=== PATIENT | female | born 1940 | race American Indian/Alaskan Native ===

== ENCOUNTER 2019-09-27 06:35 | Emergency (ER) | payer MEDICARE ==
[2019-09-27] MEDS ORDERED: ASPIRIN 325 MG TAB PO ONE (06:50)
[2019-09-27 07:17] LABS: Eosinophils # (Auto) 0.2 K/mm3 (0.0-0.4); Eosinophils % (Auto) 6.2 % (0.0-4.3); Hematocrit 29.2 % (30.3-42.9); Hemoglobin 9.2 gm/dl (10.1-14.3); Lymphocytes # (Auto) 0.9 K/mm3 (1.2-5.4); Lymphocytes % (Auto) 25.3 % (13.4-35.0); Mean Corpuscular HGB Conc 31 % (30-34); Mean Corpuscular Volume 86 fl (79-97); Monocytes # (Auto) 0.4 K/mm3 (0.0-0.8); Monocytes % (Auto) 10.9 % (0.0-7.3); Platelet Count 198 K/mm3 (140-440); Red Cell Distribution Width 18.2 % (13.2-15.2)
[2019-09-27 07:38] LABS: BUN/Creatinine Ratio 13; Blood Urea Nitrogen 10 mg/dL (7-17); Calcium 9.7 mg/dL (8.4-10.2); Hemolysis Index 1
--- NOTE | 2019-09-27 07:44 | XRay Report ---
CHEST 1 VIEW INDICATION: Chest Pain. COMPARISON: None FINDINGS: Support devices: None. Heart: Within normal limits. Lungs/Pleura: The lungs are mildly hyperinflated suggesting underlying emphysema. No evidence for pne umonia, pleural fluid or pneumothorax. Additional findings: None. IMPRESSION: Mild hyperinflation. No acute process noted. Signer Name: Pasquale Dixon Jr, MD Signed: 09/27/2019 7:39 AM Workstation Name: [id number]
--- NOTE | 2019-09-27 10:42 | Emergency Department Report ---
ED Shortness of Breath HPI - General Chief Complaint: Dyspnea/Respdistress Stated Complaint: SOB Time Seen by Provider: 09/27/19 10:39 Source: patient, family Mode of arrival: Wheelchair Limitations: Other - History of Present Illness Initial Comments: This is a 79-year-old female who states that her pulse oximetry was reading in the 80s despite 4 L of home O2 chronically. She states that she is relying on portable tanks instead of a concentrator. She gave herself a nebulizer treatment this morning. She states that she has had occasional cough which is not really as clear as it usually is. She denies hemoptysis. She does not complain of fever or chills. She denies chest pain. Patient is here with family member. She states that she has moved here from [place] within the last month. She is just establishing care with a primary care provider. She has a history of gout and a malignant neoplasm of the bladder. MD Complaint: shortness of breath Improves With: oxygen Worsens With: nothing Known History Of: COPD Context: recent URI Associated Symptoms: denies other symptoms - Related Data Previous Rx's Medication Instructions Recorded Last Taken Type Azithromycin [Zithromax Z-ANU] 250 mg PO DAILY #6 tablet 09/27/19 Unknown Rx Allergies Allergy/AdvReac Type Severity Reaction Status Date / Time cefuroxime Allergy Unknown Verified 09/27/19 06:45 codeine Allergy Unknown Verified 09/27/19 06:45 Sulfa (Sulfonamide Allergy Unknown Verified 09/27/19 06:45 Antibiotics) ED Review of Systems ROS: Stated complaint: SOB Other details as noted in HPI Constitutional: denies: chills, fever Eyes: denies: eye pain, eye discharge, vision change ENT: denies: ear pain, throat pain Respiratory: denies: cough, shortness of breath, wheezing Cardiovascular: denies: chest pain, palpitations Endocrine: no symptoms reported Gastrointestinal: denies: abdominal pain, nausea, diarrhea Genitourinary: denies: urgency, dysuria, discharge Musculoskeletal: other (States chronically cool feet). denies: back pain, joint swelling, arthralgia Skin: denies: rash, lesions, change in color (No acute change) Neurological: denies: headache, weakness, paresthesias Psychiatric: denies: anxiety, depression Hematological/Lymphatic: denies: easy bleeding, easy bruising ED Past Medical Hx - Past Medical History Previous Medical History?: Yes Hx Hypertension: Yes Hx Congestive Heart Failure: Yes Hx Diabetes: Yes Hx Renal Disease: Yes (stage 2) Hx of Cancer: Yes (malignant neoplasm of urinar bladder) Hx Arthritis: Yes (gout) Hx COPD: Yes Additional medical history: neuropathy. afib. Cataract. Pnuemonia aug 2019. high cholesterol. anemia. left kidney mass. STACEY - Surgical History Past Surgical History?: No - Social History Smoking Status: Current Some Day Smoker Substance Use Type: None - Medications Home Medications: Home Medications Medication Instructions Recorded Confirmed Last Taken Type Azithromycin [Zithromax Z-ANU] 250 mg PO DAILY #6 tablet 09/27/19 Unknown Rx ED Physical Exam - General Limitations: Physical Limitation General appearance: alert, in no apparent distress - Head Head exam: Present: atraumatic, normocephalic - Eye Eye exam: Present: normal appearance. Absent: scleral icterus - ENT ENT exam: Present: mucous membranes moist - Neck Neck exam: Present: normal inspection - Respiratory Respiratory exam: Present: decreased breath sounds (Somewhat distant), other (Increased AP diameter). Absent: respiratory distress, wheezes (No overt wheezes), rales, rhonchi - Cardiovascular Cardiovascular Exam: Present: regular rate, normal rhythm. Absent: systolic mu rmur, diastolic murmur, rubs, gallop - GI/Abdominal GI/Abdominal exam: Present: soft, normal bowel sounds. Absent: distended, tenderness, guarding, rebound - Extremities Exam Extremities exam: Present: other (Both feet are slightly cool. There are poor peripheral pulses bilaterally. Color is normal. There is no evidence of an acute ischemic limb.) - Back Exam Back exam: Present: normal inspection - Neurological Exam Neurological exam: Present: alert, oriented X3, CN II-XII intact. Absent: reflexes normal - Psychiatric Psychiatric exam: Present: normal affect, normal mood - Skin Skin exam: Present: warm, dry, intact, normal color. Absent: rash ED Course Vital Signs 09/27/19 09/27/19 09/27/19 06:42 06:44 06:47 Temperature 97.6 F Pulse Rate 57 L Pulse Rate [ 73 Bilateral] Respiratory 18 Rate Respiratory 16 Rate [Bilateral ] Blood Pressure 140/51 Blood Pressure [Left] O2 Sat by Pulse 97 97 Oximetry 09/27/19 13:08 Temperature 97.8 F Pulse Rate 82 Pulse Rate [ Bilateral] Respiratory 18 Rate Respiratory Rate [Bilateral ] Blood Pressure Blood Pressure 130/69 [Left] O2 Sat by Pulse 100 Oximetry - Reevaluation(s) Reevaluation #1: Patient admits that she did not take her metformin today. She is not on insulin. She states that she had benefit from the DuoNeb treatment. Her pulse oximetry is 100% on supplemental oxygen. She states that she has an appointment with her primary care provider on the . She will be placed on an antibiotic and allowed to follow-up with her primary care physician. 09/27/19 13:10 ED Medical Decision Making - Lab Data Result diagrams: 09/27/19 06:57 09/27/19 06:57 Laboratory Results - last 24 hr 09/27/19 09/27/19 09/27/19 06:57 06:57 09:57 WBC 3.7 L RBC 3.40 L Hgb 9.2 L Hct 29.2 L MCV 86 MCH 27 L MCHC 31 RDW 18.2 H Plt Count 198 Lymph % (Auto) 25.3 [place] % (Auto) 10.9 H Eos % (Auto) 6.2 H Baso % (Auto) 1.0 Lymph # 0.9 L [place] # 0.4 Eos # 0.2 Baso # 0.0 Seg Neutrophils % 56.6 Seg Neutrophils # 2.1 Sodium 139 Potassium 4.2 Chloride 97.8 L Carbon Dioxide 26 Anion Gap 19 BUN 10 Creatinine 0.8 Estimated GFR > 60 BUN/Creatinine Ratio 13 Glucose 302 H Calcium 9.7 Troponin T 0.011 < 0.010 NT-Pro-B Natriuret Pep 489.1 - EKG Data -: EKG Interpreted by Me EKG shows normal: axis (Leftward), intervals, QRS complexes (Bundle branch block), ST-T waves Rate: normal - EKG Data Interpretation: no acute changes, other (Multiple PACs wandering atrial pacemaker bifascicular block, right bundle branch block/LAFB, likely LVH) Critical care attestation.: If time is entered above; I have spent that time in minutes in the direct care of this critically ill patient, excluding procedure time. ED Disposition Clinical Impression: Chronic respiratory failure with hypoxia Hyperglycemia due to type 2 diabetes mellitus Qualifiers: Diabetes mellitus intermediate insulin use: without intermediate use Qualified Co de(s): E11.65 - Type 2 diabetes mellitus with hyperglycemia Upper respiratory infection Qualifiers: URI type: unspecified URI Qualified Code(s): J06.9 - Acute upper respiratory infection, unspecified Disposition: DC-01 TO HOME OR SELFCARE Is pt being admited?: No Does the pt Need Aspirin: No Condition: Stable Instructions: Diabetes Mellitus Type 2 in Adults (ED) Additional Instructions: Follow-up with your usual primary care physician. Rx as directed. Return any further problems acute change or symptom. Prescriptions: Azithromycin [Zithromax Z-ANU] 250 mg PO DAILY #6 tablet Referrals: BHAVIN HERNANDEZ MD [Primary Care Provider] - 2-3 Days Time of Disposition: 13:13
[2019-09-27] MEDS ORDERED: IPRATROPIUM/ALBUTEROL SULFATE 3 ML AMPUL.NEB IH ONE (11:10)
[2019-09-27 13:50] VITALS: BP 157/68
== END 2019-09-27 13:50 | disposition home or self-care (01) ==
LOC: ED 06:35
DX: J06.9 Acute upper respiratory infection, unspecified (principal); J96.11 Chronic respiratory failure with hypoxia; I13.0 Hypertensive heart and chronic kidney disease with heart failure and stage 1 through stage 4 chronic kidney disease, or unspecified chronic kidney disease; I50.9 Heart failure, unspecified; E11.22 Type 2 diabetes mellitus with diabetic chronic kidney disease; E11.65 Type 2 diabetes mellitus with hyperglycemia; N18.2 Chronic kidney disease, stage 2 (mild); M10.9 Gout, unspecified; J44.9 Chronic obstructive pulmonary disease, unspecified; I48.91 Unspecified atrial fibrillation; E78.00 Pure hypercholesterolemia, unspecified; D64.9 Anemia, unspecified; F17.200 Nicotine dependence, unspecified, uncomplicated; Z88.2 Allergy status to sulfonamides; Z88.6 Allergy status to analgesic agent; Z79.899 Other long term (current) drug therapy
CPT/HCPCS: 36415; 71045; 80048; 82962; 83880; 84484; 85025; 93005; 93010; 94640; 94644

== ENCOUNTER 2019-10-18 13:54 | Inpatient (IN) | payer MEDICARE ==
[2019-10-18] MEDS ORDERED: ALBUTEROL 2.5 MG/3 ML NEBU IH ONE ×2 (14:11→16:40)
[2019-10-18 14:37] LABS: Bilirubin,Urine NEG (Negative); Blood,Urine NEG (Negative); Color,Urine Yellow (Yellow); Hyaline Casts,Urine 1 /LPF; Mucus,Urine FEW /HPF
--- NOTE | 2019-10-18 14:40 | XRay Report ---
CHEST 1 VIEW 10/18/2019 2:18 PM INDICATION / CLINICAL INFORMATION: Respiratory distress. COMPARISON: Chest x-ray on 09/27/2019. FINDINGS: SUPPORT DEVICES: None. HEART / MEDIASTINUM: Normal heart size. Atherosclerosis in the thoracic aorta. LUNGS / PLEURA: Stable hyperaeration without focal pulmonary abnormality. No pneumothorax. ADDITIONAL FINDINGS: No significant additional findings. IMPRESSION: 1. Stable findings of COPD without adverse change from 09/27/2019. Signer Name: Chris Minor MD Signed: 10/18/2019 2:36 PM Workstation Name: [id number]
[2019-10-18 15:30] LABS: Basophils # (Auto) 0.2 K/mm3 (0.0-0.1); Basophils % (Auto) 2.4 % (0.0-1.8); Eosinophils % (Auto) 0.3 % (0.0-4.3); Hematocrit 32.2 % (30.3-42.9); Hemoglobin 9.9 gm/dl (10.1-14.3); Lymphocytes % (Auto) 13.7 % (13.4-35.0); Mean Corpuscular HGB Conc 31 % (30-34); Mean Corpuscular Volume 84 fl (79-97); Monocytes # (Auto) 0.4 K/mm3 (0.0-0.8); Monocytes % (Auto) 5.3 % (0.0-7.3); Platelet Count 283 K/mm3 (140-440); Red Blood Count 3.82 M/mm3 (3.65-5.03); Red Cell Distribution Width 14.7 % (13.2-15.2)
[2019-10-18 15:40] LABS: INR 1.18 (0.87-1.13)
[2019-10-18 15:41] LABS: Partial Thromboplastin Time 37.4 Sec. (24.2-36.6)
[2019-10-18 15:45] LABS: Alanine Aminotransferase 15 units/L (7-56); BUN/Creatinine Ratio 15; Blood Urea Nitrogen 15 mg/dL (7-17); Calcium 9.6 mg/dL (8.4-10.2); Hemolysis Index 2
[2019-10-18] MEDS ORDERED: levETIRAcetam 1000 MG/NS 0.75% 1,000 MG/100 ML BAG IV ONE (15:56)
--- NOTE | 2019-10-18 16:11 | Emergency Department Report ---
ED Shortness of Breath HPI - General Chief Complaint: Dyspnea/Respdistress Stated Complaint: FELISA Time Seen by Provider: 10/18/19 14:08 Source: patient, EMS Mode of arrival: Stretcher Limitations: No Limitations - History of Present Illness Initial Comments: Patient is a 79-year-old F [place] female with a past medical history of COPD who is oxygen dependent on 2 to 3 L of oxygen at home who presented with shortness of breath. Patient was found hypoxic with a O2 sat in the mid 80s. Patient was placed on BiPAP and given to mill grams of magnesium 10 mg of albuterol and 125 mg of Solu-Medrol prior to arrival. According to the patient's daughter she has not had a fever and does have a dry cough. There is been no nausea vomiting diarrhea. Patient's daughter states that she is in palliative care. - Related Data Previous Rx's Medication Instructions Recorded Last Taken Type Azithromycin [Zithromax Z-ANU] 250 mg PO DAILY #6 tablet 09/27/19 Unknown Rx Allergies Allergy/AdvReac Type Severity Reaction Status Date / Time cefuroxime Allergy Unknown Verified 09/27/19 06:45 codeine Allergy Unknown Verified 09/27/19 06:45 Sulfa (Sulfonamide Allergy Unknown Verified 09/27/19 06:45 Antibiotics) ED Review of Systems ROS: Stated complaint: FELISA Other details as noted in HPI Comment: All other systems reviewed and negative ED Past Medical Hx - Past Medical History Hx Hypertension: Yes Hx Congestive Heart Failure: Yes Hx Diabetes: Yes Hx Renal Disease: Yes (stage 2) Hx Arthritis: Yes (gout) Hx COPD: Yes Additional medical history: neuropathy. afib. Cataract. Pnuemonia aug 2019. high cholesterol. anemia. left kidney mass. STACEY - Social History Smoking Status: Current Every Day Smoker - Medications Home Medications: Home Medications Medication Instructions Recorded Confirmed Last Taken Type Azithromycin [Zithromax Z-ANU] 250 mg PO DAILY #6 tablet 09/27/19 Unknown Rx ED Physical Exam - General Limitations: No Limitations General appearance: alert, in no apparent distress - Head Head exam: Present: atraumatic, normocephalic - Eye Eye exam: Present: normal appearance - ENT ENT exam: Present: mucous membranes moist - Neck Neck exam: Present: normal inspection - Respiratory Respiratory exam: Present: respiratory distress, wheezes. Absent: normal lung sounds bilaterally, rales, rhonchi - Cardiovascular Cardiovascular Exam: Present: regular rate, normal rhythm, normal heart sounds. Absent: systolic murmur, diastolic murmur, rubs, gallop - GI/Abdominal GI/Abdominal exam: Present: soft, normal bowel sounds. Absent: distended, tenderness, guarding - Extremities Exam Extremities exam: Present: normal inspection - Back Exam Back exam: Present: normal inspection - Neurological Exam Neurological exam: Present: alert, oriented X3 - Psychiatric Psychiatric exam: Present: normal affect, normal mood - Skin Skin exam: Present: warm, dry, intact, normal color. Absent: rash ED Course Vital Signs 10/18/19 10/18/19 14:21 14:37 Temperature 99.3 F Pulse Rate 96 H 104 H Respiratory 28 H 16 Rate Blood Pressure 137/69 131/53 O2 Sat by Pulse 99 98 Oximetry ED Medical Decision Making - Lab Data Result diagrams: 10/18/19 14:54 10/18/19 14:54 Lab Results 10/18/19 10/18/19 10/18/19 Range/Units 14:22 14:54 14:54 WBC 7.1 (4.5-11.0) K/mm3 RBC 3.82 (3.65-5.03) M/mm3 Hgb 9.9 L (10.1-14.3) gm/dl Hct 32.2 (30.3-42.9) % MCV 84 (79-97) fl MCH 26 L (28-32) pg MCHC 31 (30-34) % RDW 14.7 (13.2-15.2) % Plt Count 283 (140-440) K/mm3 Lymph % (Auto) 13.7 (13.4-35.0) % [place] % (Auto) 5.3 (0.0-7.3) % Eos % (Auto) 0.3 (0.0-4.3) % Baso % (Auto) 2.4 H (0.0-1.8) % Lymph # 1.0 L (1.2-5.4) K/mm3 [place] # 0.4 (0.0-0.8) K/mm3 Eos # 0.0 (0.0-0.4) K/mm3 Baso # 0.2 H (0.0-0.1) K/mm3 Seg Neutrophils % 78.3 H (40.0-70.0) % Seg Neutrophils # 5.6 (1.8-7.7) K/mm3 PT 15.2 H (12.2-14.9) Sec. INR 1.18 H (0.87-1.13) APTT 37.4 H (24.2-36.6) Sec. D-Dimer 160.25 (0-234) ng/mlDDU Sodium (137-145) mmol/L Potassium (3.6-5.0) mmol/L Chloride (98-107) mmol/L Carbon Dioxide (22-30) mmol/L Anion Gap mmol/L BUN (7-17) mg/dL Creatinine (0.7-1.2) mg/dL Estimated GFR ml/min BUN/Creatinine Ratio % Glucose (65-100) mg/dL Lactic Acid (0.7-2.0) mmol/L Calcium (8.4-10.2) mg/dL Magnesium (1.7-2.3) mg/dL Ferritin (13.0-400.0) ng/mL Total Bilirubin (0.1-1.2) mg/dL AST (5-40) units/L ALT (7-56) units/L Alkaline Phosphatase (35-129) units/L Lactate Dehydrogenase (91-180) units/L Troponin T (0.00-0.029) ng/mL C-Reactive Protein (0.00-1.30) mg/dL NT-Pro-B Natriuret Pep (0-900) pg/mL Total Protein (6.3-8.2) g/dL Urine Color Yellow (Yellow) Urine Turbidity Slightly-cloudy (Clear) Urine pH 5.0 (5.0-7.0) Ur Specific [employer] 1.020 (1.003-1.030) Urine Protein 100 mg/dl (Negative) mg/dL Urine Glucose (UA) 50 (Negative) mg/dL Urine Ketones Neg (Negative) mg/dL Urine Blood Neg (Negative) Urine Nitrite Neg (Negative) Urine Bilirubin Neg (Negative) Urine Urobilinogen 2.0 (<2.0) mg/dL Ur Leukocyte Esterase Tr (Negative) Urine WBC (Auto) 28.0 H (0.0-6.0) /HPF Urine RBC (Auto) 6.0 (0.0-6.0) /HPF U Epithel Cells (Auto) 1.0 (0-13.0) /HPF Hyaline Casts 1 /LPF Urine Mucus Few /HPF 10/18/19 10/18/19 10/18/19 Range/Units 14:54 14:54 14:54 WBC (4.5-11.0) K/mm3 RBC (3.65-5.03) M/mm3 Hgb (10.1-14.3) gm/dl Hct (30.3-42.9) % MCV (79-97) fl MCH (28-32) pg MCHC (30-34) % RDW (13.2-15.2) % Plt Count (140-440) K/mm3 Lymph % (Auto) (13.4-35.0) % [place] % (Auto) (0.0-7.3) % Eos % (Auto) (0.0-4.3) % Baso % (Auto) (0.0-1.8) % Lymph # (1.2-5.4) K/mm3 [place] # (0.0-0.8) K/mm3 Eos # (0.0-0.4) K/mm3 Baso # (0.0-0.1) K/mm3 Seg Neutrophils % (40.0-70.0) % Seg Neutrophils # (1.8-7.7) K/mm3 PT (12.2-14.9) Sec. INR (0.87-1.13) APTT (24.2-36.6) Sec. D-Dimer (0-234) ng/mlDDU Sodium 137 (137-145) mmol/L Potassium 3.8 (3.6-5.0) mmol/L Chloride 93.0 L (98-107) mmol/L Carbon Dioxide 28 (22-30) mmol/L Anion Gap 20 mmol/L BUN 15 (7-17) mg/dL Creatinine 1.0 (0.7-1.2) mg/dL Estimated GFR > 60 ml/min BUN/Creatinine Ratio 15 % Glucose 250 H (65-100) mg/dL Lactic Acid 2.30 H* (0.7-2.0) mmol/L Calcium 9.6 (8.4-10.2) mg/dL Magnesium 2.90 H (1.7-2.3) mg/dL Ferritin (13.0-400.0) ng/mL Total Bilirubin 0.30 (0.1-1.2) mg/dL AST 31 (5-40) units/L ALT 15 (7-56) units/L Alkaline Phosphatase 81 (35-129) units/L Lactate Dehydrogenase (91-180) units/L Troponin T 0.032 H (0.00-0.029) ng/mL C-Reactive Protein (0.00-1.30) mg/dL NT-Pro-B Natriuret Pep 360.3 (0-900) pg/mL Total Protein 6.8 (6.3-8.2) g/dL Urine Color (Yellow) Urine Turbidity (Clear) Urine pH (5.0-7.0) Ur Specific [employer] (1.003-1.030) Urine Protein (Negative) mg/dL Urine Glucose (UA) (Negative) mg/dL Urine Ketones (Negative) mg/dL Urine Blood (Negative) Urine Nitrite (Negative) Urine Bilirubin (Negative) Urine Urobilinogen (<2.0) mg/dL Ur Leukocyte Esterase (Negative) Urine WBC (Auto) (0.0-6.0) /HPF Urine RBC (Auto) (0.0-6.0) /HPF U Epithel Cells (Auto) (0-13.0) /HPF Hyaline Casts /LPF Urine Mucus /HPF 10/18/19 10/18/19 Range/Units 14:54 14:54 WBC (4.5-11.0) K/mm3 RBC (3.65-5.03) M/mm3 Hgb (10.1-14.3) gm/dl Hct (30.3-42.9) % MCV (79-97) fl MCH (28-32) pg MCHC (30-34) % RDW (13.2-15.2) % Plt Count (140-440) K/mm3 Lymph % (Auto) (13.4-35.0) % [place] % (Auto) (0.0-7.3) % Eos % (Auto) (0.0-4.3) % Baso % (Auto) (0.0-1.8) % Lymph # (1.2-5.4) K/mm3 [place] # (0.0-0.8) K/mm3 Eos # (0.0-0.4) K/mm3 Baso # (0.0-0.1) K/mm3 Seg Neutrophils % (40.0-70.0) % Seg Neutrophils # (1.8-7.7) K/mm3 PT (12.2-14.9) Sec. INR (0.87-1.13) APTT (24.2-36.6) Sec. D-Dimer (0-234) ng/mlDDU Sodium (137-145) mmol/L Potassium (3.6-5.0) mmol/L Chloride (98-107) mmol/L Carbon Dioxide (22-30) mmol/L Anion Gap mmol/L BUN (7-17) mg/dL Creatinine (0.7-1.2) mg/dL Estimated GFR ml/min BUN/Creatinine Ratio % Glucose (65-100) mg/dL Lactic Acid (0.7-2.0) mmol/L Calcium (8.4-10.2) mg/dL Magnesium (1.7-2.3) mg/dL Ferritin 59.8 (13.0-400.0) ng/mL Total Bilirubin (0.1-1.2) mg/dL AST (5-40) units/L ALT (7-56) units/L Alkaline Phosphatase (35-129) units/L Lactate Dehydrogenase < 10 L (91-180) units/L Troponin T (0.00-0.029) ng/mL C-Reactive Protein 0.00 (0.00-1.30) mg/dL NT-Pro-B Natriuret Pep (0-900) pg/mL Total Protein (6.3-8.2) g/dL Urine Color (Yellow) Urine Turbidity (Clear) Urine pH (5.0-7.0) Ur Specific [employer] (1.003-1.030) Urine Protein (Negative) mg/dL Urine Glucose (UA) (Negative) mg/dL Urine Ketones (Negative) mg/dL Urine Blood (Negative) Urine Nitrite (Negative) Urine Bilirubin (Negative) Urine Urobilinogen (<2.0) mg/dL Ur Leukocyte Esterase (Negative) Urine WBC (Auto) (0.0-6.0) /HPF Urine RBC (Auto) (0.0-6.0) /HPF U Epithel Cells (Auto) (0-13.0) /HPF Hyaline Casts /LPF Urine Mucus /HPF - Radiology Data [facility] [address] [place] [address] XRay Report Signed Patient: AMY SEBASTIAN MR#: [id number] : 1940 Acct:[id number] Age/Sex: 79 / F ADM Date: 10/18/19 Loc: ED Attending Dr: Ordering Physician: ANJALI SAMSON MD Date of Service: 10/18/19 Procedure(s): XR chest 1V ap Accession Number(s): [id number] cc: ANJALI SAMSON MD Fluoro Time In Minutes: CHEST 1 VIEW 10/18/2019 2:18 PM INDICATION / CLINICAL INFORMATION: Respiratory distress. COMPARISON: Chest x-ray on 09/27/2019. FINDINGS: SUPPORT DEVICES: None. HEART / MEDIASTINUM: Normal heart size. Atherosclerosis in the thoracic aorta. LUNGS / PLEURA: Stable hyperaeration without focal pulmonary abnormality. No pneumothorax. ADDITIONAL FINDINGS: No significant additional findings. IMPRESSION: 1. Stable findings of COPD without adverse change from 09/27/2019. Signer Name: Chris Minor MD Signed: 10/18/2019 2:36 PM Workstation Name: [id number] Transcribed By: KATIE Dictated By: Chris Minor MD Electronically Authenticated By: Chris Minor MD Signed Date/Time: 10/18/19 1436 - Medical Decision Making Patient is a 79-year-old F [place] female with past medical history of advanced COPD who is presenting with a COPD exacerbation with hypoxia. Patient is on BiPAP. Filter was placed on the BiPAP so has not aerosolized sputum. Given the recent coronavirus pandemic I did don a gown with eye shield and in 95 mask during my interaction with this patient. Patient was afebrile her white count is within normal limits. Patient was given additional 10 mg of albuterol and her wheezing has improved. Patient still has a prolonged expiratory phase but appears to be more comfortable at the time of admission. Patient found to have a urinary tract infection and was given Levaquin. Patient be admitted for observation. Critical Care Time: Yes (30) Critical care attestation.: If time is entered above; I have spent that time in minutes in the direct care of this critically ill patient, excluding procedure time. ED Disposition Clinical Impression: COPD with exacerbation, Acute respiratory distress, Urinary tract infection Disposition: OP ADMIT IP TO THIS HOSP Is pt being admited?: Yes Does the pt Need Aspirin: No Condition: Stable Time of Disposition: 16:11
[2019-10-18 16:25] LABS: Albumin 3.4 g/dL (3.9-5); Chol/HDL Ratio 1.83 %; HDL Cholesterol 91 mg/dL (40-59); LDL Cholesterol,Direct 74 mg/dL (50-130)
--- NOTE | 2019-10-18 16:39 | History and Physical Report ---
History of Present Illness Chief complaint: I have been having problems breathing for the past few days History of present illness: 79 YO Female with COPD, Chronic Respiratory Failure on 2L Home Oxygen via nasal canula, CHF, CKD, OA, DM, Gout, Nicotine Dependence presents to ED for evaluation. Patient states that she has experienced shortness of breath over the past 3 days with persistently worsening symptoms over the same timeframe. Patient acknowledges dry cough with increased sputum production, as well as per sistent symptoms with increased nebulizer use and increased supplemental oxygen use. EMS notified and upon arrival the patient was found to be in distress and subsequently transported to [facility] for further evaluation and care. Patient seen and evaluated in the emergency department. Lab and imaging studies reviewed. Patient found to have symptoms consistent with COPD exacerbation complicated by acute hypoxemic respiratory failure with a pulse oximetry of 81% on 2 L nasal cannula. Patient also found to have urinary tract infection, acidosis, as well as CHF. Patient admitted to [facility] unit due to increased risk of pulmonary decompensation. Patient symptoms did not improve with supplemental oxygen as the patient experienced increased work of breathing, tripoding, and was unable to speak in complete sentences due to shortness of breath. Patient was subsequently placed on noninvasive positive pressure pain evaluation in the emergency department and initiated on IV steroid therapy. Advanced care planning conducted in the emergency department. No prior admission for review. No medication listed at time of admission for reconciliation. Past History Past Medical History: arthritis, COPD, diabetes, heart failure, other (See HPI) Past Surgical History: No surgical history, Other (Reviewed) Social history: single, smoking. denies: alcohol abuse, prescription drug abuse Family history: CAD, diabetes, hypertension Medications and Allergies Allergies Allergy/AdvReac Type Severity Reaction Status Date / Time cefuroxime Allergy Unknown Verified 09/27/19 06:45 codeine Allergy Unknown Verified 09/27/19 06:45 Sulfa (Sulfonamide Allergy Unknown Verified 09/27/19 06:45 Antibiotics) Home Medications Medication Instructions Recorded Confirmed Last Taken Type Azithromycin [Zithromax Z-ANU] 250 mg PO DAILY #6 tablet 09/27/19 Unknown Rx Review of Systems Constitutional: no weight loss, no weight gain, no fever, no chills, no fatigue, no weakness, no malaise Ears, nose, mouth and throat: no ear pain, no ear discharge, no tinnitis, no decreased hearing, no nose pain, no nasal congestion, no nasal discharge Cardiovascular: no chest pain, no orthopnea, no palpitations, no rapid/irregular heart beat Respiratory: cough, cough with sputum, shortness of breath, no congestion, no wheezing, no pleurisy Gastrointestinal: no nausea, no vomiting, no diarrhea, no constipation Genitourinary Female: no pelvic pain, no flank pain, no menorrhagia, no dysuria Rectal: no pain, no incontinence, no bleeding Musculoskeletal: no neck stiffness, no neck pain, no shooting arm pain, no arm numbness/tingling, no low back pain Integumentary: no rash, no pruritis, no redness, no sores, no wounds Neurological: no transient paralysis, no paralysis, no weakness, no parathesias, no numbness Psychiatric: no anxiety, no memory loss, no change in sleep habits, no sleep disturbances, no insomnia, no hypersomnia Endocrine: no cold intolerance, no heat intolerance, no polyphagia, no excessive thirst, no polydipsia, no polyuria Hematologic/Lymphatic: no easy bruising, no easy bleeding, no lymphadenopathy Allergic/Immunologic: no urticaria, no allergic rhinitis, no persistent infections Exam - Constitutional Vitals: Temp Pulse Resp BP Pulse Ox 99.3 F 91 H 18 107/54 100 10/18/19 14:37 10/18/19 16:00 10/18/19 16:11 10/18/19 16:00 10/18/19 16:11 General appearance: Present: mild distress, cachectic - EENT Eyes: Present: PERRL ENT: hearing intact, clear oral mucosa - Neck Neck: Present: supple, normal ROM - Respiratory Respiratory effort: normal Respiratory: bilateral: diminished, rhonchi - Cardiovascular Heart Sounds: Present: S1 & S2. Absent: rub, click - Extremities Extremities: pulses symmetrical, No edema Peripheral Pulses: within normal limits - Abdominal General gastrointestinal: Present: soft, non-tender, non-distended, normal bowel sounds Female genitourinary: Present: normal - Integumentary Integumentary: Present: clear, warm, dry - Musculoskeletal Musculoskeletal: generalized weakness - Psychiatric Psychiatric: appropriate mood/affect, intact judgment & insight - Neurologic Neurologic: CNII-XII intact, moves all extremities Results - Labs CBC & Chem 7: 10/18/19 14:54 10/18/19 14:54 Labs: Abnormal lab results 10/18/19 10/18/19 10/18/19 Range/Units 14:22 14:54 14:54 Hgb 9.9 L (10.1-14.3) gm/dl MCH 26 L (28-32) pg Baso % (Auto) 2.4 H (0.0-1.8) % Lymph # 1.0 L (1.2-5.4) K/mm3 Baso # 0.2 H (0.0-0.1) K/mm3 Seg Neutrophils % 78.3 H (40.0-70.0) % PT 15.2 H (12.2-14.9) Sec. INR 1.18 H (0.87-1.13) APTT 37.4 H (24.2-36.6) Sec. Chloride (98-107) mmol/L Glucose (65-100) mg/dL Lactic Acid (0.7-2.0) mmol/L Magnesium (1.7-2.3) mg/dL Lactate Dehydrogenase (91-180) units/L Troponin T (0.00-0.029) ng/mL Albumin (3.9-5) g/dL HDL Cholesterol (40-59) mg/dL Urine WBC (Auto) 28.0 H (0.0-6.0) /HPF 10/18/19 10/18/19 10/18/19 Range/Units 14:54 14:54 14:54 Hgb (10.1-14.3) gm/dl MCH (28-32) pg Baso % (Auto) (0.0-1.8) % Lymph # (1.2-5.4) K/mm3 Baso # (0.0-0.1) K/mm3 Seg Neutrophils % (40.0-70.0) % PT (12.2-14.9) Sec. INR (0.87-1.13) APTT (24.2-36.6) Sec. Chloride 93.0 L (98-107) mmol/L Glucose 250 H (65-100) mg/dL Lactic Acid 2.30 H* (0.7-2.0) mmol/L Magnesium 2.90 H (1.7-2.3) mg/dL Lactate Dehydrogenase < 10 L (91-180) units/L Troponin T 0.032 H (0.00-0.029) ng/mL Albumin 3.4 L (3.9-5) g/dL HDL Cholesterol 91 H (40-59) mg/dL Urine WBC (Auto) (0.0-6.0) /HPF Assessment and Plan - Patient Problems (1) Acute respiratory failure Current Visit: Yes Status: Acute Qualifiers: Respiratory failure complication: hypoxia Qualified Code(s): J96.01 - Acute respiratory failure with hypoxia Plan to address problem: Supplemental oxygen, nebulizer therapy, noninvasive positive pressure ventilation, chest x-ray, treat COPD exacerbation. Continue home oxygen and titrate as clinically indicated. (2) CHF (congestive heart failure) Current Visit: Yes Status: Acute Qualifiers: Heart failure type: diastolic Heart failure chronicity: chronic Qualified Code(s): I50.32 - Chronic diastolic (congestive) heart failure Plan to address problem: Strict I/O, monitor urine output every shift, BMP, serial cardiac enzymes, supportive care. (3) COPD with exacerbation Current Visit: Yes Status: Acute Plan to address problem: Supplemental oxygen, nebulizer therapy, pulse oximetry, IV steroid therapy, noninvasive positive pressure ventilation, chest x-ray. (4) Urinary tract infection Current Visit: Yes Status: Acute Qualifiers: Encounter type: initial encounter Plan to address problem: CBC, BMP, urinalysis, IV antibiotic therapy, (5) DVT prophylaxis Current Visit: Yes Status: Acute Plan to address problem: SCD to bilateral lower extremities while in bed, patient is ambulatory. (6) Advance care planning Current Visit: Yes Status: Acute Plan to address problem: Patient is full code, disease education conducted, patient and daughter acknowledged understanding and agreement with care plan, +30 minutes.
[2019-10-18] MEDS ORDERED: ACETAMINOPHEN 325 MG TAB PO PRN (16:41)
[2019-10-18] MEDS ORDERED: ONDANSETRON 4 MG/2 ML INJ IV PRN (16:41)
[2019-10-18] MEDS ORDERED: methylPREDNISolone Sod Succinate 40 MG/1 ML INJ IV ONE (17:00)
[2019-10-18] MEDS: ENOXAPARIN 100 MG/1 ML INJ SUB-Q SCH (21:49)
[2019-10-18] MEDS ORDERED: ENOXAPARIN 100 MG/1 ML INJ SUB-Q SCH (22:00)
[2019-10-19 05:41] LABS: Calcium 9.2 mg/dL (8.4-10.2)
[2019-10-19] MEDS: methylPREDNISolone Sod Succinate 40 MG/1 ML INJ IV SCH ×2 (06:16→17:42)
[2019-10-19] MEDS: ENOXAPARIN 100 MG/1 ML INJ SUB-Q SCH (10:12)
[2019-10-19] MEDS ORDERED: DEXTROSE 50% IN WATER (25GM) 50 ML SYRINGE IV PRN (11:10)
[2019-10-19] MEDS: INSULIN LISPRO 100 UNIT/ML SUB-Q SCH ×3 (12:09→22:13)
--- NOTE | 2019-10-19 17:13 | Progress Note ---
Assessment and Plan - Patient Problems (1) CHF (congestive heart failure) Current Visit: Yes Status: Acute Qualifiers: Heart failure type: diastolic Heart failure chronicity: chronic Qualified Code(s): I50.32 - Chronic diastolic (congestive) heart failure Plan to address problem: Strict I/O, monitor urine output every shift, BMP, serial cardiac enzymes, supportive care. Echocardiogram shows EF of 15%. (2) NSTEMI (non-ST elevation myocardial infarction) Current Visit: Yes Status: Acute Plan to address problem: Type II NSTEMI: Continue therapeutic anticoagulation, supportive care. (3) Acute respiratory failure Current Visit: Yes Status: Acute Qualifiers: Respiratory failure complication: hypoxia Qualified Code(s): J96.01 - Acute respiratory failure with hypoxia Plan to address problem: Supplemental oxygen, nebulizer therapy, noninvasive positive pressure ventilation, chest x-ray, treat COPD exacerbation. Continue home oxygen and titrate as clinically indicated. (4) COPD with exacerbation Current Visit: Yes Status: Acute Plan to address problem: Supplemental oxygen, nebulizer therapy, pulse oximetry, IV steroid therapy, noninvasive positive pressure ventilation weaned off overnight, continue submental oxygen as clinically indicated, repeat chest x-ray. (5) Urinary tract infection Current Visit: Yes Status: Acute Qualifiers: Encounter type: initial encounter Plan to address problem: CBC, BMP, urinalysis, IV antibiotic therapy, (6) DVT prophylaxis Current Visit: Yes Status: Acute Plan to address problem: SCD to bilateral lower extremities while in bed, patient is ambulatory. (7) Advance care planning Current Visit: Yes Status: Acute Plan to address problem: Patient is full code, disease education conducted, patient and daughter acknowledged understanding and agreement with care plan, +30 minutes. History Interval history: 79-year-old female hospital day 2 with CHF decompensation complicated by acute hypoxemic respiratory failure, urinary tract infection, type II NSTEMI on therapeutic anticoagulation. Patient denies fever, chills, chest pain, palpitation, hemoptysis. Patient states that her symptoms have improved somewhat overnight. Patient continues to acknowledge weakness, and mild shortness of breath. Patient acknowledges weakness. Patient weaned off noninvasive positive pressure ventilation overnight but we will continue supplemental oxygen. No reported nursing events overnight. Hospitalist Physical - Constitutional Vitals: Temp Pulse Resp BP Pulse Ox 97.9 F 85 16 155/65 97 10/19/19 16:04 10/19/19 16:04 10/19/19 16:04 10/19/19 16:04 10/19/19 16:04 General appearance: Present: mild distress, cachectic - EENT Eyes: Present: PERRL ENT: hearing intact - Neck Neck: Present: supple - Respiratory Respiratory: bilateral: diminished, rhonchi - Cardiovascular Rhythm: regular Heart Sounds: Present: S1 & S2 - Abdominal General gastrointestinal: soft, non-tender, non-distended - Integumentary Integumentary: Present: clear, warm, dry - Psychiatric Psychiatric: appropriate mood/affect, cooperative - Neurologic Neurologic: moves all extremities Results - Labs CBC & Chem 7: 10/18/19 14:54 10/19/19 04:37 Labs: Laboratory Last Values WBC 7.1 K/mm3 (4.5-11.0) 10/18/19 14:54 RBC 3.82 M/mm3 (3.65-5.03) 10/18/19 14:54 Hgb 9.9 gm/dl (10.1-14.3) L 10/18/19 14:54 Hct 32.2 % (30.3-42.9) 10/18/19 14:54 MCV 84 fl (79-97) 10/18/19 14:54 MCH 26 pg (28-32) L 10/18/19 14:54 MCHC 31 % (30-34) 10/18/19 14:54 RDW 14.7 % (13.2-15.2) 10/18/19 14:54 Plt Count 283 K/mm3 (140-440) 10/18/19 14:54 Lymph % (Auto) 13.7 % (13.4-35.0) 10/18/19 14:54 [place] % (Auto) 5.3 % (0.0-7.3) 10/18/19 14:54 Eos % (Auto) 0.3 % (0.0-4.3) 10/18/19 14:54 Baso % (Auto) 2.4 % (0.0-1.8) H 10/18/19 14:54 Lymph # 1.0 K/mm3 (1.2-5.4) L 10/18/19 14:54 [place]imer # 0.4 K/mm3 (0.0-0.8) 10/18/19 14:54 Eos # 0.0 K/mm3 (0.0-0.4) 10/18/19 14:54 Baso # 0.2 K/mm3 (0.0-0.1) H 10/18/19 14:54 Seg Neutrophils % 78.3 % (40.0-70.0) H 10/18/19 14:54 Seg Neutrophils # 5.6 K/mm3 (1.8-7.7) 10/18/19 14:54 PT 15.2 Sec. (12.2-14.9) H 10/18/19 14:54 INR 1.18 (0.87-1.13) H 10/18/19 14:54 APTT 37.4 Sec. (24.2-36.6) H 10/18/19 14:54 D-Dimer 160.25 ng/mlDDU (0-234) 10/18/19 14:54 Sodium 136 mmol/L (137-145) L 10/19/19 04:37 Potassium 5.1 mmol/L (3.6-5.0) H D 10/19/19 04:37 Chloride 92.0 mmol/L (98-107) L 10/19/19 04:37 Carbon Dioxide 30 mmol/L (22-30) 10/19/19 04:37 Anion Gap 19 mmol/L 10/19/19 04:37 BUN 33 mg/dL (7-17) H 10/19/19 04:37 Creatinine 1.2 mg/dL (0.7-1.2) 10/19/19 04:37 Estimated GFR 53 ml/min 10/19/19 04:37 BUN/Creatinine Ratio 28 % 10/19/19 04:37 Glucose 384 mg/dL (65-100) H 10/19/19 04:37 POC Glucose 242 (70-105) H 10/19/19 16:32 Lactic Acid 1.40 mmol/L (0.7-2.0) 10/18/19 16:52 Calcium 9.2 mg/dL (8.4-10.2) 10/19/19 04:37 Magnesium 2.90 mg/dL (1.7-2.3) H 10/18/19 14:54 Ferritin 59.8 ng/mL (13.0-400.0) 10/18/19 14:54 Total Bilirubin 0.30 mg/dL (0.1-1.2) 10/18/19 14:54 AST 31 units/L (5-40) 10/18/19 14:54 ALT 15 units/L (7-56) 10/18/19 14:54 Alkaline Phosphatase 81 units/L (35-129) 10/18/19 14:54 Lactate Dehydrogenase < 10 units/L (91-180) L 10/18/19 14:54 Troponin T 0.118 ng/mL (0.00-0.029) H* D 10/18/19 22:51 C-Reactive Protein 0.00 mg/dL (0.00-1.30) 10/18/19 14:54 NT-Pro-B Natriuret Pep 360.3 pg/mL (0-900) 10/18/19 14:54 Total Protein 6.8 g/dL (6.3-8.2) 10/18/19 14:54 Albumin 3.4 g/dL (3.9-5) L 10/18/19 14:54 Albumin/Globulin Ratio 1.0 % 10/18/19 14:54 Triglycerides 112 mg/dL (2-149) 10/18/19 14:54 Cholesterol 167 mg/dL (50-199) 10/18/19 14:54 LDL Cholesterol Direct 74 mg/dL (50-130) 10/18/19 14:54 HDL Cholesterol 91 mg/dL (40-59) H 10/18/19 14:54 Cholesterol/HDL Ratio 1.83 % 10/18/19 14:54 Procalcitonin 0.08 ng/mL (<0.15) 10/18/19 14:54 Urine Color Yellow (Yellow) 10/18/19 14:22 Urine Turbidity Slightly-cloudy (Clear) 10/18/19 14:22 Urine pH 5.0 (5.0-7.0) 10/18/19 14:22 Ur Specific [place] 1.020 (1.003-1.030) 10/18/19 14:22 Urine Protein 100 mg/dl mg/dL (Negative) 10/18/19 14:22 Urine Glucose (UA) 50 mg/dL (Negative) 10/18/19 14:22 Urine Ketones Neg mg/dL (Negative) 10/18/19 14:22 Urine Blood Neg (Negative) 10/18/19 14:22 Urine Nitrite Neg (Negative) 10/18/19 14:22 Urine Bilirubin Neg (Negative) 10/18/19 14:22 Urine Urobilinogen 2.0 mg/dL (<2.0) 10/18/19 14:22 Ur Leukocyte Esterase Tr (Negative) 10/18/19 14:22 Urine WBC (Auto) 28.0 /HPF (0.0-6.0) H 10/18/19 14:22 Urine RBC (Auto) 6.0 /HPF (0.0-6.0) 10/18/19 14:22 U Epithel Cells (Auto) 1.0 /HPF (0-13.0) 10/18/19 14:22 Hyaline Casts 1 /LPF 10/18/19 14:22 Urine Mucus Few /HPF 10/18/19 14:22 Microbiology: Microbiology 10/18/19 Unknown Peripheral/Venous Blood Culture - Preliminary NO GROWTH AFTER 24 HOURS 10/18/19 14:22 Urine,Clean Catch Urine Culture - Preliminary 10/18/19 Unknown Peripheral/Venous Blood Culture - Preliminary - Diagnostic Impressions Diagnostic Impressions: Echocardiogram 10/18/19 18:15 Transthoracic Echocardiogram Indication: SOB BP: 127/67 HR: 82 Conclusions *The left ventricular size is moderate to severely dilated. *Mild to moderate concentric left ventricular hypertrophy is observed. *Global left ventricular systolic function is severely decreased. *The estimated ejection fraction is 15-20%. *There is global akinesis with mild sparing of the basal segments of the LV. *There is mild mitral regurgitation. *There is moderate tricuspid regurgitation. *There is evidence of mild-moderate pulmonary hypertension. *The right ventricular systolic pressure is calculated at 40 mmHg. *A patent foramen ovale is not demonstrated by agitated saline contrast. Findings Left Ventricle: The left ventricular size is moderate to severely dilated. Mild to moderate concentric left ventricular hypertrophy is observed. Global left ventricular systolic function is severely decreased. The estimated ejection fraction is 15-20%. Left Atrium: The left atrium is mildly dilated. Right Ventricle: The right ventricle is slightly dilated. Right Atrium: The right atrium is mildly dilated. A patent foramen ovale is not demonstrated by agitated saline contrast. Aortic Valve: The aortic valve is trileaflet. The aortic valve leaflets are moderately thickened. There is no evidence of aortic regurgitation. There is no evidence of aortic stenosis. Mitral Valve: The mitral valve leaflets are mildly thickened. There is mild mitral regurgitation. There is no evidence of mitral stenosis. Tricuspid Valve: There is moderate tricuspid regurgitation. The right ventricular systolic pressure is calculated at 40 mmHg. There is evidence of mild pulmonary hypertension. Pulmonic Valve: There is mild to moderate pulmonic regurgitation. There is no pulmonic stenosis. Pericardium: There is no pericardial effusion. Aorta: There is no dilatation of the ascending aorta. There is no dilatation of the aortic root. Venous: The inferior vena cava appears normal in size. Contrast: Intravenous agitated saline contrast was used to assess intracardiac shunting. Measurements Chambers 2D Name Value Normal Range IVSd (2D) 0.96 cm (0.6 - 1.1) LVPWd (2D) 0.9 cm (0.6 - 1.1) LVIDd (2D) 4.4 cm (3.7 - 5.6) LVIDs (2D) 3.31 cm (2 - 3.8) LV FS (2D) 24.93 % - EF Teichholz (2D) 49.56 % - Ao root diameter (2D) 2.6 cm (2 - 3.7) Volumes/Mass Name Value Normal Range LA ESV SP 4CH (A/L) 25.64 ml - LA ESV SP 2CH (A/L) 49.56 ml - LA ESV BP (A/L) 36.99 ml - LA ESV BP (A/L) index 24.17 ml/m2 - LA ESV SP 4CH (MOD) 23.97 ml - LA ESV SP 2CH (MOD) 48.32 ml - LA ESV BP (MOD) 35.21 ml - LA ESV BP (MOD) index 23.01 ml/m2 - Diastolic/Systolic Function Name Value Normal Range MV E-wave Vmax 0.63 m/sec - MV deceleration time 159.36 msec - MV A-wave Vmax 1.05 m/sec - MV E:A ratio 0.6 ratio - Aortic Valve Name Value Normal Range AV Vmax 1.34 m/sec - AV VTI 27.98 cm - AV peak gradient 7.18 mmHg - AV mean gradient 4.04 mmHg - LVOT diameter 2.06 cm - LVOT Vmax 1.04 m/sec - LVOT VTI 21.43 cm - LVOT peak gradient 4.33 mmHg - LVOT mean gradient 2.51 mmHg - SV LVOT 71.3 ml - ANGY (continuity Vmax) 2.58 cm2 - ANGY (continuity VTI) 2.55 cm2 - Mitral Valve Name Value Normal Range MR Vmax 4.21 m/sec - Tricuspid Valve Name Value Normal Range TR Vmax 3.07 m/sec - TR peak gradient 37 mmHg - RAP 3 mmHg - RVSP 40 mmHg - Pulmonic Valve/Qp:Qs Name Value Normal Range PV Vmax 0.75 m/sec - PV peak gradient 2.22 mmHg - CT end-diastolic Vmax 1.15 m/sec - PV acceleration time 91.34 msec - Landeros/IV: Voiding Method Bedpan IV Catheter Type [Right INT / Saline Lock Antecubital] Active Medications - Current Medications Current Medications: Generic Name Dose Route Start Last Admin Trade Name Freq PRN Reason Stop Dose Admin Acetaminophen 650 mg 10/18/19 16:41 Tylenol PO Q4H PRN Pain MILD(1-3)/Fever >100.5/HERNANDEZ Dextrose 50 ml 10/19/19 11:10 D50w (25gm) Syringe IV Q30MIN PRN Hypoglycemia Protocol Enoxaparin Sodium 50 mg 10/19/19 22:00 Enoxaparin SUB-Q Q12HR MIREILLE Levofloxacin/Dextrose 500 mg in 100 mls @ 100 mls/hr 10/18/19 17:00 10/18/19 17:34 Levaquin 500mg/100ml IV 100 mls/hr Q24H MIREILLE Administration Protocol Insulin Human Lispro 0 unit 10/19/19 11:30 10/19/19 12:09 Humalog SUB-Q 6 unit ACHS MIREILLE Administration Protocol Methylprednisolone Sodium Succinate 40 mg 10/19/19 06:00 10/19/19 06:16 Solu-Medrol IV 40 mg Q12H MIREILLE Administration Ondansetron HCl 4 mg 10/18/19 16:41 Zofran IV Q8H PRN Nausea And Vomiting Sodium Chloride 10 ml 10/18/19 22:00 10/19/19 10:13 Sodium Chloride Flush Syringe 10 Ml IV 10 ml BID MIREILLE Administration Sodium Chloride 10 ml 10/18/19 16:41 Sodium Chloride Flush Syringe 10 Ml IV PRN PRN LINE FLUSH
[2019-10-19] MEDS: ENOXAPARIN 60 MG/0.6 ML INJ SUB-Q SCH (22:13)
[2019-10-20] MEDS: methylPREDNISolone Sod Succinate 40 MG/1 ML INJ IV SCH ×2 (05:19→18:02)
[2019-10-20] MEDS: INSULIN LISPRO 100 UNIT/ML SUB-Q SCH ×4 (08:05→23:00)
[2019-10-20] MEDS: ENOXAPARIN 60 MG/0.6 ML INJ SUB-Q SCH ×2 (10:32→23:00)
[2019-10-20] MEDS: ALBUTEROL 2.5 MG/3 ML NEBU IH PRN (23:39)
[2019-10-21] MEDS: methylPREDNISolone Sod Succinate 40 MG/1 ML INJ IV SCH ×2 (05:35→17:01)
--- NOTE | 2019-10-21 10:08 | Progress Note ---
Assessment and Plan (1) Acute respiratory failure Current Visit: Yes Status: Acute Qualifiers: Respiratory failure complication: hypoxia Qualified Code(s): J96.01 - Acute respiratory failure with hypoxia Plan to address problem: Supplemental oxygen, nebulizer therapy, noninvasive positive pressure ventilation, chest x-ray, treat COPD exacerbation. Continue home oxygen and titrate as clinically indicated. Day 2 there is some improvement but still short of breath (2) CHF (congestive heart failure) Current Visit: Yes Status: Acute Qualifiers: Heart failure type: diastolic Heart failure chronicity: chronic Qualified Code(s): I50.32 - Chronic diastolic (congestive) heart failure Plan to address problem: Strict I/O, monitor urine output every shift, BMP, serial cardiac enzymes, supportive care. Will check echocardiogram for ejection fraction (3) COPD with exacerbation Current Visit: Yes Status: Acute Plan to address problem: Supplemental oxygen, nebulizer therapy, pulse oximetry, IV steroid therapy, noninvasive positive pressure ventilation, chest x-ray. Due to some improvement (4) Urinary tract infection Current Visit: Yes Status: Acute Qualifiers: Encounter type: initial encounter Plan to address problem: CBC, BMP, urinalysis, IV antibiotic therapy, Continue antibiotics (5) DVT prophylaxis Current Visit: Yes Status: Acute Plan to address problem: SCD to bilateral lower extremities while in bed, patient is ambulatory. (6) Advance care planning Current Visit: Yes Status: Acute Plan to address problem: Patient is full code, disease education conducted, patient and daughter acknowledged understanding and agreement with care plan, +30 minutes. Subjective Date of service: 10/20/19 Principal diagnosis: CHF Exacerbation Interval history: CHF exacerbation 79 YO Female with COPD, Chronic Respiratory Failure on 2L Home Oxygen via nasal canula, CHF, CKD, OA, DM, Gout, Nicotine Dependence presents to ED for evalu ation. Patient states that she has experienced shortness of breath over the past 3 days with persistently worsening symptoms over the same timeframe. Patient acknowledges dry cough with increased sputum production, as well as persistent symptoms with increased nebulizer use and increased supplemental oxygen use. EMS notified and upon arrival the patient was found to be in distress and subsequently transported to [facility] for further evaluation and care. Patient seen and evaluated in the emergency department. Lab and imaging studies reviewed. Patient found to have symptoms consistent with COPD exacerbation complicated by acute hypoxemic respiratory failure with a pulse oximetry of 81% on 2 L nasal cannula. Patient also found to have urinary tract infection, acidosis, as well as CHF. Patient admitted to [facility] unit due to increased risk of pulmonary decompensation. Patient symptoms did not improve with supplemental oxygen as the patient experienced increased work of breathing, tripoding, and was unable to speak in complete sentences due to shortness of breath. Patient was subsequently placed on noninvasive positive pressure pain evaluation in the emergency department and initiated on IV steroid therapy. Advanced care planning conducted in the emergency department. No prior admission for review. No medication listed at time of admission for reconciliation. Interval improvement present Objective - Constitutional Vitals: Vital Signs - 12hr 10/20/19 10/20/19 10/20/19 23:07 23:30 23:40 Temperature 98.2 F Pulse Rate 97 H Pulse Rate [ 105 H Anterior Bilateral Throughout] Respiratory 18 24 Rate Respiratory 20 Rate [Anterior Bilateral Throughout] Respiratory Rate [denies] Blood Pressure 149/72 O2 Sat by Pulse 92 Oximetry 10/20/19 10/21/19 10/21/19 23:52 00:13 03:00 Temperature Pulse Rate 108 H 111 H 92 H Pulse Rate [ Anterior Bilateral Throughout] Respiratory 27 H 29 H Rate Respiratory Rate [Anterior Bilateral Throughout] Respiratory 20 Rate [denies] Blood Pressure O2 Sat by Pulse 95 96 Oximetry 10/21/19 10/21/19 10/21/19 03:26 03:27 08:31 Temperature 97.8 F 97.9 F Pulse Rate 109 H 105 H 99 H Pulse Rate [ Anterior Bilateral Throughout] Respiratory 24 18 Rate Respiratory Rate [Anterior Bilateral Throughout] Respiratory Rate [denies] Blood Pressure 160/68 126/69 O2 Sat by Pulse 94 95 95 Oximetry General appearance: Present: no acute distress, well-nourished - EENT Eyes: PERRL, EOM intact ENT: hearing intact, clear oral mucosa Ears: bilateral: normal - Neck Neck: supple, normal ROM - Respiratory Respiratory effort: normal Respiratory: bilateral: CTA - Breasts Breasts: normal - Cardiovascular Heart rate: 78 Rhythm: regular Heart Sounds: Present: S1 & S2. Absent: gallop, rub Extremities: pulses intact, No edema, normal color, Full ROM - Gastrointestinal General gastrointestinal: Present: soft, non-tender, non-distended, normal bowel sounds - Genitourinary Female genitourinary: normal - Integumentary Integumentary: clear, warm, dry - Musculoskeletal Musculoskeletal: 1, strength equal bilaterally - Neurologic Neurologic: moves all extremities - Psychiatric Psychiatric: memory intact, appropriate mood/affect, intact judgment & insight - Allied health notes Allied health notes reviewed: nursing, case management - Labs CBC & Chem 7: 10/18/19 14:54 10/19/19 04:37 Labs: Abnormal lab results 10/20/19 10/20/19 10/20/19 Range/Units 10:43 12:41 18:14 POC Glucose 351 H 422 H 109 H (70-105) 10/20/19 Range/Units 21:51 POC Glucose 256 H (70-105)
[2019-10-21] MEDS: ENOXAPARIN 60 MG/0.6 ML INJ SUB-Q SCH ×2 (10:54→21:07)
[2019-10-21] MEDS: INSULIN LISPRO 100 UNIT/ML SUB-Q SCH ×4 (10:55→22:53)
--- NOTE | 2019-10-21 11:35 | Consultation ---
History of Present Illness Consult date: 10/21/19 Consult reason: shortness of breath History of present illness: 79 year old female presenting with worsening shortness of breath and hypoxemia. She is known to have advanced emphysema and has been on home oxygen. She has been hospitalized multiple times over the last 2 years in [place] for shortness of breath, pneumonia and respiratory failures. She was told in the past that she has a 'weak heart' and recommended for medical therapy - no history of non- invasive or invasive cardiac procedures. During this admission, an echo was done showing a reduced LVEF with regional wall motion abnormalities. Troponin trend is also concerning for non-STEMI due to coronary artery disease. Patient is very sedentary and is able to walk only short distance with the assistance of a walker. She has a history of afib and she takes eliquis at home. She denies any bleeding on eliquis. Tele is showing afib with RVR. Past History Past Medical History: arthritis, COPD, diabetes, heart failure, other (See HPI) Past Surgical History: No surgical history, Other (Reviewed) Social history: single, smoking. denies: alcohol abuse, prescription drug abuse Family history: CAD, diabetes, hypertension Medications and Allergies Allergies Allergy/AdvReac Type Severity Reaction Status Date / Time cefuroxime Allergy Unknown Verified 09/27/19 06:45 codeine Allergy Unknown Verified 09/27/19 06:45 Sulfa (Sulfonamide Allergy Unknown Verified 09/27/19 06:45 Antibiotics) Home Medications Medication Instructions Recorded Confirmed Last Taken Type Albuterol Sulfate [Proair 90 mcg IH Q4HR PRN 10/18/19 10/18/19 10/17/19 08:00 History Digihaler] Apixaban 5 mg PO BID 10/18/19 10/18/19 10/17/19 08:00 History Atorvastatin [Lipitor Tab] 40 mg PO DAILY 10/18/19 10/18/19 10/17/19 08:00 History Azithromycin [Zithromax Z-ANU] 250 mg PO Q4HR PRN 10/18/19 10/18/19 10/10/19 08:00 History Ferrous Sulfate [Iron 325 MG] 325 mg PO BID 10/18/19 10/18/19 10/17/19 08:00 History Fluticasone/Vilanterol [Breo 1 each IH ONCE 10/18/19 10/18/1920 08:00 History Ellipta 100-25 Mcg INH] Ipratropium/Albuter (Nf) 2.5 mg INHALATION Q6HR 10/18/19 10/18/19 10/17/19 08:00 History [Combivent Inhaler] Polyethylene Glycol 3350 17 gm PO DAILY 10/18/19 10/18/19 10/17/19 08:00 History [Powderlax] dilTIAZem CD [Cardizem Cd] 240 mg PO QDAY 10/18/19 10/18/19 10/17/19 08:00 History hydroCHLOROthiazide 12.5 mg PO DAILY 10/18/19 10/18/19 10/17/19 08:00 History [Hydrochlorothiazide] levoFLOXacin [Levofloxacin] 500 mg PO ONCE 10/18/19 10/18/19 10/17/19 08:00 History metFORMIN [Glucophage] 500 mg PO BID 10/18/19 10/18/19 10/17/19 08:00 History Active Meds: Active Medications Acetaminophen (Tylenol) 650 mg PO Q4H PRN PRN Reason: Pain MILD(1-3)/Fever >100.5/HERNANDEZ Last Admin: 10/20/19 10:32 Dose: 650 mg Documented by: Albuterol (Proventil) 2.5 mg IH Q4HRT PRN PRN Reason: Shortness Of Breath Last Admin: 10/20/19 23:39 Dose: 2.5 mg Documented by: Dextrose (D50w (25gm) Syringe) 50 ml IV Q30MIN PRN; Protocol PRN Reason: Hypoglycemia Enoxaparin Sodium (Enoxaparin) 50 mg SUB-Q Q12HR [place]RE[place] Last Admin: 10/21/19 10:54 Dose: 50 mg Documented by: Levofloxacin/Dextrose (Levaquin 500mg/100ml) 500 mg in 100 mls @ 100 mls/hr IV Q24H [place]; Protocol Last Admin: 10/20/19 18:02 Dose: 100 mls/hr Documented by: Insulin Human Lispro (Humalog) 0 unit SUB-Q ACHS [place]; Protocol Last Admin: 10/21/19 10:55 Dose: 6 unit Documented by: Methylprednisolone Sodium Succinate (Solu-Medrol) 40 mg IV Q12H [place] Last Admin: 10/21/19 05:35 Dose: 40 mg Documented by: Ondansetron HCl (Zofran) 4 mg IV Q8H PRN PRN Reason: Nausea And Vomiting Sodium Chloride (Sodium Chloride Flush Syringe 10 Ml) 10 ml IV BID [place] Last Admin: 10/21/19 10:57 Dose: 10 ml Documented by: Sodium Chloride (Sodium Chloride Flush Syringe 10 Ml) 10 ml IV PRN PRN PRN Reason: LINE FLUSH Review of Systems All systems: negative Physical Examination Vital Signs Pulse Ox 99 10/18/19 13:56 General appearance: no acute distress, cachectic Neck: Positive: neck supple. Negative: JVD/HJR Cardiac: Positive: irregularly irregular Lungs: Positive: Decreased Breath Sounds Abdomen: Positive: Soft Extremities: Absent: edema Results 10/18/19 14:54 10/19/19 04:37 - EKG Interpretation EKG shows: atrial fibrillation EKG interpretations - Telemetry EKG Rhythm: Atrial Fibrillation AV and intraventricular conduction: right bundle branch block, left anterior fascicular Repolarization changes or abnormalities: ST or T wave suggestive of ischemia Assessment and Plan Ischemic cardiomyopathy, LVEF 15-20% with regional wall motion abnormality NSTEMI this admission currently on lovenox 50 mg SC bid Advanced emphysema with chronic shortness of breath and home O2 use Abnormal ECG Persistent atrial fibrillation with RVR Type II DM Chronic anemia with no active bleeding Recommendations: Start aspirin, lipitor Rate control of afib with metoprolol XL Initiate low dose ACEi prior to discharge if BP permits Transition back to po eliquis prior to discharge Conservative medical management for ischemic cardiomyopathy and NSTEMI. Patient is too frail for any invasive cardiac work-up.
[2019-10-21] MEDS: METOPROLOL SUCCINATE XL 50 MG TAB PO SCH ×2 (13:39→21:06)
[2019-10-21] MEDS: PANTOPRAZOLE 40 MG TAB PO SCH (13:40)
[2019-10-21] MEDS: ASPIRIN EC 81 MG TAB PO SCH (13:40)
[2019-10-22] MEDS: methylPREDNISolone Sod Succinate 40 MG/1 ML INJ IV SCH ×2 (05:32→17:41)
[2019-10-22] MEDS: INSULIN LISPRO 100 UNIT/ML SUB-Q SCH ×4 (09:51→22:39)
[2019-10-22] MEDS: ASPIRIN EC 81 MG TAB PO SCH (09:52)
[2019-10-22] MEDS: ENOXAPARIN 60 MG/0.6 ML INJ SUB-Q SCH ×2 (09:54→21:57)
[2019-10-22] MEDS: METOPROLOL SUCCINATE XL 50 MG TAB PO SCH ×2 (09:54→21:58)
[2019-10-22] MEDS: PANTOPRAZOLE 40 MG TAB PO SCH (09:54)
--- NOTE | 2019-10-22 10:25 | Progress Note ---
Assessment and Plan - Patient Problems (1) CHF (congestive heart failure) Current Visit: Yes Status: Acute Qualifiers: Heart failure type: diastolic Heart failure chronicity: chronic Qualified Code(s): I50.32 - Chronic diastolic (congestive) heart failure (2) COPD with exacerbation Current Visit: Yes Status: Acute (3) NSTEMI (non-ST elevation myocardial infarction) Current Visit: Yes Status: Acute Subjective Date of service: 10/22/19 Principal diagnosis: CHF Exacerbation Interval history: STILL SOB,,,NO PAIN Objective Vital Signs Temp Pulse Resp BP Pulse Ox 10/22/19 09:54 123 H 128/68 10/22/19 08:25 98.5 F 123 H 18 128/68 92 10/22/19 05:01 97.7 F 120 H 24 147/82 96 10/21/19 23:27 97.5 F L 92 H 20 145/72 94 10/21/19 22:00 90 10/21/19 21:18 100 10/21/19 21:06 83 120/61 10/21/19 19:08 97.7 F 83 24 120/61 98 10/21/19 16:05 97.9 F 96 H 18 134/66 100 10/21/19 13:39 109 H 129/60 10/21/19 12:24 98.2 F 109 H 18 129/60 100 - Physical Examination General: No Apparent Distress Neck: Positive: neck supple, Other (MILS JVD). Negative: JVD/HJR Cardiac: Positive: Irregularly Regular Lungs: Positive: Wheezes Abdomen: Positive: Soft Extremities: Present: Other (NO EDEMA). Absent: edema AV and intraventricular conduction: right bundle branch block, left anterior fascicular Repolarization changes or abnormalities: ST or T wave suggestive of ischemia
[2019-10-22] MEDS: FUROSEMIDE 20 MG/2 ML INJ IV SCH (12:21)
--- NOTE | 2019-10-22 17:04 | Progress Note ---
Assessment and Plan (1) Acute respiratory failure Current Visit: Yes Status: Acute Qualifiers: Respiratory failure complication: hypoxia Qualified Code(s): J96.01 - Acute respiratory failure with hypoxia Plan to address problem: Supplemental oxygen, nebulizer therapy, noninvasive positive pressure ventilation, chest x-ray, treat COPD exacerbation. Continue home oxygen and titrate as clinically indicated. Day 3 there is some improvement but still short of breath (2) CHF (congestive heart failure) exacerbation Current Visit: Yes Status: Acute Qualifiers: Heart failure type: diastolic Heart failure chronicity: chronic Qualified Code(s): I50.32 - Chronic diastolic (congestive) heart failure Plan to address problem: Strict I/O, monitor urine output every shift, BMP, serial cardiac enzymes, supportive care. Ischemic cardiomyopathy, LVEF 15-20% with regional wall motion abnormality NSTEMI this admission currently on lovenox 50 mg SC bid / NO CP ADD LASIX DAILY CONSIDER IV DOBUTAMINE IF SOB CONTINUES (3) COPD with exacerbation Current Visit: Yes Status: Acute Plan to address problem: Supplemental oxygen, nebulizer therapy, pulse oximetry, IV steroid therapy, noninvasive positive pressure ventilation, chest x-ray. Due to some improvement Advanced emphysema with chronic shortness of breath and home O2 use Pulmonary consult 4)A. fib with RVR Metoprolol initiated (5) Urinary tract infection Current Visit: Yes Status: Acute Qualifiers: Encounter type: initial encounter Plan to address problem: CBC, BMP, urinalysis, IV antibiotic therapy, Continue antibiotics (6) DVT prophylaxis Current Visit: Yes Status: Acute Plan to address problem: SCD to bilateral lower extremities while in bed, patient is ambulatory. (7) Advance care planning Current Visit: Yes Status: Acute Plan to address problem: Patient is full code, disease education conducted, patient and daughter acknowledged understanding and agreement with care plan, +30 minutes. Subjective Date of service: 10/21/19 Principal diagnosis: CHF Exacerbation Interval history: CHF exacerbation 79 YO Female with COPD, Chronic Respiratory Failure on 2L Home Oxygen via nasal canula, CHF, CKD, OA, DM, Gout, Nicotine Dependence presents to ED for evaluation. Patient states that she has experienced shortness of breath over the past 3 days with persistently worsening symptoms over the same timeframe. Patient acknowledges dry cough with increased sputum production, as well as persistent symptoms with increased nebulizer use and increased supplemental oxygen use. EMS notified and upon arrival the patient was found to be in distress and subsequently transported to [facility] for further evaluation and care. Patient seen and evaluated in the emergency department. Lab and imaging studies reviewed. Patient found to have symptoms consistent with COPD exacerbation complicated by acute hypoxemic respiratory failure with a pulse oximetry of 81% on 2 L nasal cannula. Patient also found to have urinary tract infection, acidosis, as well as CHF. Patient admitted to [facility] unit due to increased risk of pulmonary decompensation. Patient symptoms did not improve with supplemental oxygen as the patient experienced increased work of breathing, tripoding, and was unable to speak in complete sentences due to shortness of breath. Patient was subsequently placed on noninvasive positive pressure pain evaluation in the emergency department and initiated on IV steroid therapy. Advanced care planning conducted in the emergency department. No prior admission for review. No medication listed at time of admission for reconciliation. Interval improvement present Objective - Constitutional Vitals: Vital Signs - 12hr 10/22/19 10/22/19 10/22/19 08:25 09:54 10:00 Temperature 98.5 F Pulse Rate 123 H 123 H 123 H Pulse Rate [ From Monitor] Respiratory 18 Rate Blood Pressure 128/68 128/68 O2 Sat by Pulse 92 Oximetry 10/22/19 10/22/19 10/22/19 11:00 11:49 16:04 Temperature 97.9 F 98.0 F Pulse Rate 126 H 124 H Pulse Rate [ 123 H From Monitor] Respiratory 20 18 18 Rate Blood Pressure 136/75 135/68 O2 Sat by Pulse 98 98 Oximetry General appearance: Present: mild distress, well-nourished - EENT Eyes: PERRL, EOM intact ENT: hearing intact, clear oral mucosa Ears: bilateral: normal - Neck Neck: supple, normal ROM - Respiratory Respiratory effort: normal Respiratory: bilateral: CTA, rales - Breasts Breasts: normal - Cardiovascular Heart rate: 88 Rhythm: regular Heart Sounds: Present: S1 & S2. Absent: gallop, rub Extremities: no ischemia, pulses intact, No edema, normal color, Full ROM - Gastrointestinal General gastrointestinal: Present: soft, non-tender, non-distended, normal bowel sounds - Genitourinary Female genitourinary: normal - Integumentary Integumentary: clear, warm, dry - Musculoskeletal Musculoskeletal: 1, strength equal bilaterally - Neurologic Neurologic: moves all extremities - Psychiatric Psychiatric: memory intact, appropriate mood/affect, intact judgment & insight - Labs CBC & Chem 7: 10/18/19 14:54 10/19/19 04:37 Labs: Abnormal lab results 10/21/19 10/21/19 10/22/19 Range/Units 10:48 21:20 09:22 POC Glucose 316 H 296 H 400 H (70-105) 10/22/19 10/22/19 Range/Units 12:03 16:20 POC Glucose 365 H 275 H (70-105)
--- NOTE | 2019-10-22 17:13 | Progress Note ---
Assessment and Plan (1) Acute respiratory failure Current Visit: Yes Status: Acute Qualifiers: Respiratory failure complication: hypoxia Qualified Code(s): J96.01 - Acute respiratory failure with hypoxia Plan to address problem: Supplemental oxygen, nebulizer therapy, noninvasive positive pressure ventilation, chest x-ray, treat COPD exacerbation. Continue home oxygen and titrate as clinically indicated. Day 3 there is some improvement but still short of breath (2) CHF (congestive heart failure) exacerbation Current Visit: Yes Status: Acute Qualifiers: Heart failure type: diastolic Heart failure chronicity: chronic Qualified Code(s): I50.32 - Chronic diastolic (congestive) heart failure Plan to address problem: Strict I/O, monitor urine output every shift, BMP, serial cardiac enzymes, supportive care. Ischemic cardiomyopathy, LVEF 15-20% with regional wall motion abnormality NSTEMI this admission currently on lovenox 50 mg SC bid / NO CP ADD LASIX DAILY CONSIDER IV DOBUTAMINE IF SOB CONTINUES (3) COPD with exacerbation Current Visit: Yes Status: Acute Plan to address problem: Supplemental oxygen, nebulizer therapy, pulse oximetry, IV steroid therapy, noninvasive positive pressure ventilation, chest x-ray. Due to some improvement Advanced emphysema with chronic shortness of breath and home O2 use Pulmonary consult 4)A. fib with RVR Metoprolol initiated (5) Urinary tract infection Current Visit: Yes Status: Acute Qualifiers: Encounter type: initial encounter Plan to address problem: CBC, BMP, urinalysis, IV antibiotic therapy, Continue antibiotics (6) DVT prophylaxis Current Visit: Yes Status: Acute Plan to address problem: SCD to bilateral lower extremities while in bed, patient is ambulatory. (7) Advance care planning Current Visit: Yes Status: Acute Plan to address problem: Patient is full code, disease education conducted, patient and daughter acknowledged understanding and agreement with care plan, +30 minutes. Subjective Date of service: 10/21/19 Principal diagnosis: CHF Exacerbation Interval history: CHF exacerbation 79 YO Female with COPD, Chronic Respiratory Failure on 2L Home Oxygen via nasal canula, CHF, CKD, OA, DM, Gout, Nicotine Dependence presents to ED for evaluation. Patient states that she has experienced shortness of breath over the past 3 days with persistently worsening symptoms over the same timeframe. Patient acknowledges dry cough with increased sputum production, as well as persistent symptoms with increased nebulizer use and increased supplemental oxygen use. EMS notified and upon arrival the patient was found to be in distress and subsequently transported to [facility] for further evaluation and care. Patient seen and evaluated in the emergency department. Lab and imaging studies reviewed. Patient found to have symptoms consistent with COPD exacerbation complicated by acute hypoxemic respiratory failure with a pulse oximetry of 81% on 2 L nasal cannula. Patient also found to have urinary tract infection, acidosis, as well as CHF. Patient admitted to [facility] unit due to increased risk of pulmonary decompensation. Patient symptoms did not improve with supplemental oxygen as the patient experienced increased work of breathing, tripoding, and was unable to speak in complete sentences due to shortness of breath. Patient was subsequently placed on noninvasive positive pressure pain evaluation in the emergency department and initiated on IV steroid therapy. Advanced care planning conducted in the emergency department. No prior admission for review. No medication listed at time of admission for reconciliation. Interval improvement present Objective - Constitutional Vitals: Vital Signs - 12hr 10/22/19 10/22/19 10/22/19 08:25 09:54 10:00 Temperature 98.5 F Pulse Rate 123 H 123 H 123 H Pulse Rate [ From Monitor] Respiratory 18 Rate Blood Pressure 128/68 128/68 O2 Sat by Pulse 92 Oximetry 10/22/19 10/22/19 10/22/19 11:00 11:49 16:04 Temperature 97.9 F 98.0 F Pulse Rate 126 H 124 H Pulse Rate [ 123 H From Monitor] Respiratory 20 18 18 Rate Blood Pressure 136/75 135/68 O2 Sat by Pulse 98 98 Oximetry General appearance: Present: mild distress - EENT Eyes: PERRL, EOM intact ENT: hearing intact, clear oral mucosa Ears: bilateral: normal - Neck Neck: supple, normal ROM - Respiratory Respiratory effort: normal Respiratory: bilateral: CTA - Breasts Breasts: normal - Cardiovascular Heart rate: 98 Rhythm: irregularly irregular Heart Sounds: Present: S1 & S2. Absent: gallop, rub Extremities: no ischemia, pulses intact, No edema, normal color, Full ROM - Gastrointestinal General gastrointestinal: Present: soft, non-tender, non-distended, normal bowel sounds - Genitourinary Female genitourinary: normal - Integumentary Integumentary: clear, warm, dry - Musculoskeletal Musculoskeletal: 1, strength equal bilaterally - Neurologic Neurologic: moves all extremities - Psychiatric Psychiatric: memory intact, appropriate mood/affect, intact judgment & insight - Labs CBC & Chem 7: 10/18/19 14:54 10/19/19 04:37 Labs: Abnormal lab results 10/21/19 10/21/19 10/22/19 Range/Units 10:48 21:20 09:22 POC Glucose 316 H 296 H 400 H (70-105) 10/22/19 10/22/19 Range/Units 12:03 16:20 POC Glucose 365 H 275 H (70-105)
[2019-10-22] MEDS: ALBUTEROL 2.5 MG/3 ML NEBU IH PRN (20:13)
[2019-10-23] MEDS: methylPREDNISolone Sod Succinate 40 MG/1 ML INJ IV SCH (05:25)
[2019-10-23 05:58] LABS: Alanine Aminotransferase 11 units/L (7-56); BUN/Creatinine Ratio 39; Blood Urea Nitrogen 35 mg/dL (7-17); Calcium 9.7 mg/dL (8.4-10.2); Hemolysis Index 10
[2019-10-23 08:43] VITALS: BP 133/62
--- NOTE | 2019-10-23 09:40 | Progress Note ---
Assessment and Plan - Patient Problems (1) CHF (congestive heart failure) Current Visit: Yes Status: Acute Qualifiers: Heart failure type: diastolic Heart failure chronicity: chronic Qualified Code(s): I50.32 - Chronic diastolic (congestive) heart failure (2) COPD with exacerbation Current Visit: Yes Status: Acute (3) NSTEMI (non-ST elevation myocardial infarction) Current Visit: Yes Status: Acute Subjective Date of service: 10/23/19 Principal diagnosis: CHF Exacerbation Interval history: BREATHING ALITTLE BETTER Objective Vital Signs Temp Pulse Pulse Pulse Resp Resp BP 10/23/19 08:20 98.4 F 85 18 133/62 10/23/19 06:00 97.6 F 71 92 H 10/23/19 00:14 97.7 F 72 18 10/22/19 23:41 97.7 F 18 110/65 10/22/19 23:00 18 10/22/19 22:00 97.1 F L 86 18 10/22/19 21:58 96 H 141/58 10/22/19 21:48 97.1 F L 18 141/58 10/22/19 20:13 89 20 10/22/19 16:04 98.0 F 124 H 18 135/68 10/22/19 11:49 97.9 F 126 H 18 136/75 10/22/19 11:00 123 H 20 10/22/19 10:00 123 H 10/22/19 09:54 123 H 128/68 BP Pulse Ox 10/23/19 08:20 95 10/23/19 06:00 121/61 93 10/23/19 00:14 110/65 97 10/22/19 23:41 10/22/19 23:00 10/22/19 22:00 141/58 95 10/22/19 21:58 10/22/19 21:48 10/22/19 20:13 95 10/22/19 16:04 98 10/22/19 11:49 98 10/22/19 11:00 10/22/19 10:00 95 10/22/19 09:54 - Physical Examination General: No Apparent Distress Neck: Positive: neck supple, Other (MILS JVD). Negative: JVD/HJR Cardiac: Positive: Regular Rhythm Lungs: Positive: Decreased Breath Sounds Neuro: Positive: Grossly Intact Abdomen: Positive: Soft Extremities: Present: Other (NO EDEMA). Absent: edema - Labs and Meds Cardiac Enzymes 10/23/19 Range/Units Unknown AST 16 (5-40) units/L Comprehensive Metabolic Panel 10/23/19 Range/Units Unknown Sodium 138 (137-145) mmol/L Potassium 5.3 H (3.6-5.0) mmol/L Chloride 96.0 L (98-107) mmol/L Carbon Dioxide 34 H (22-30) mmol/L BUN 35 H (7-17) mg/dL Creatinine 0.9 (0.7-1.2) mg/dL Glucose 211 H (65-100) mg/dL Calcium 9.7 (8.4-10.2) mg/dL AST 16 (5-40) units/L ALT 11 (7-56) units/L Alkaline Phosphatase 63 (35-129) units/L Total Protein 5.8 L (6.3-8.2) g/dL Albumin 3.0 L (3.9-5) g/dL AV and intraventricular conduction: right bundle branch block, left anterior fascicular Repolarization changes or abnormalities: ST or T wave suggestive of ischemia
[2019-10-23] MEDS: ASPIRIN EC 81 MG TAB PO SCH (09:54)
[2019-10-23] MEDS: ENOXAPARIN 60 MG/0.6 ML INJ SUB-Q SCH (09:54)
[2019-10-23] MEDS: FUROSEMIDE 20 MG/2 ML INJ IV SCH (09:54)
[2019-10-23] MEDS: METOPROLOL SUCCINATE XL 50 MG TAB PO SCH (09:54)
[2019-10-23] MEDS: PANTOPRAZOLE 40 MG TAB PO SCH (09:54)
[2019-10-23] MEDS: INSULIN LISPRO 100 UNIT/ML SUB-Q SCH ×3 (09:59→17:33)
--- NOTE | 2019-10-23 16:40 | Discharge Summary ---
Providers - Providers Date of Admission: 10/21/19 09:00 Date of discharge: 10/23/19 Attending physician: SUZETTE VILLALTA 10/18/19 Consult to Cardiac Rehabilitation [CONS] Routine Reason For Exam: Phase I 10/21/19 10:13 Consult to Physician [CONS] Routine Comment: Consulting Provider: BRANDY QUINN Physician Instructions: Reason For Exam: CHF exacerbation [facility] Hospital[facility] Condition: Stable Pertinent studies: Echocardiogram shows ejection fraction of 15 to 20% Global systolic failure Hospital course: CHF exacerbation 79 YO Female with COPD, Chronic Respiratory Failure on 2L Home Oxygen via nasal canula, CHF, CKD, OA, DM, Gout, Nicotine Dependence presents to ED for evaluation. Patient has severe CHF and COPD Has some improvement while in the hospital Her ejection fraction is very low Her diuretics were optimized Daughter agreed for hospice (1) Acute respiratory failure Current Visit: Yes Status: Acute Qualifiers: Respiratory failure complication: hypoxia Qualified Code(s): J96.01 - Acute respiratory failure with hypoxia Plan to address problem: Improved Needs oxygen and hospice at 2 L (2) CHF (congestive heart failure) exacerbation Home hospice Oral Lasix (3) COPD with exacerbation Current Visit: Yes Status: Acute Plan to address problem: Nebulizer treatments and supplemental oxygen 4)A. fib with RVR Metoprolol initiated (5) Urinary tract infection Current Visit: Yes Status: Acute Qualifiers: Encounter type: initial encounter Plan to address problem: CBC, BMP, urinalysis, IV antibiotic therapy, Finished a course of antibiotics No need for further antibiotics (6) DVT prophylaxis Current Visit: Yes Status: Acute Plan to address problem: SCD to bilateral lower extremities while in bed, patient is ambulatory. (7) Advance care planning Current Visit: Yes Status: Acute Plan to address problem: Patient is Hospice Poor prognosis Medications reconciled Disposition: DC-50 TO HOSPICE (HOME) Core Measure Documentation - Palliative Care Palliative Care/ Comfort Measures: Hospice Care - Core Measures Any of the following diagnoses?: none Exam - Constitutional Vitals: Temp Pulse Resp BP Pulse Ox 98.4 F 98 H 21 133/62 94 10/23/19 08:20 10/23/19 10:51 10/23/19 10:51 10/23/19 08:20 10/23/19 10:51 General appearance: Present: no acute distress, well-nourished - EENT Eyes: Present: PERRL ENT: hearing intact, clear oral mucosa - Neck Neck: Present: supple, normal ROM - Respiratory Respiratory effort: normal Respiratory: bilateral: CTA - Cardiovascular Heart Sounds: Present: S1 & S2. Absent: rub, click - Extremities Extremities: pulses symmetrical, No edema Peripheral Pulses: within normal limits - Abdominal General gastrointestinal: Present: soft, non-tender, non-distended, normal bowel sounds Female genitourinary: Present: normal - Integumentary Integumentary: Present: clear, warm, dry - Musculoskeletal Musculoskeletal: gait normal, strength equal bilaterally - Psychiatric Psychiatric: appropriate mood/affect, intact judgment & insight - Neurologic Neurologic: CNII-XII intact, moves all extremities Plan Activity: no restrictions Diet: low fat Follow up with: SHU BOWLES MD [Primary Care Provider] - 7 Days ABDELRAHMAN MARTÍNEZ MD [Staff Physician] - 7 Days
== END 2019-10-23 18:14 | disposition hospice, home (50) | DRG 189 ==
LOC: ED 13:54 → 2B-ACE 16:41 → 4A 20:38 → OBSVTOIN 10-21 09:00
PROVIDERS: ADMIT Internal Medicine; ATTEND Internal Medicine
PROC: 5A09357 Assistance with Respiratory Ventilation, Less than 24 Consecutive Hours, Continuous Positive Airway Pressure (ICD-10-PCS; principal; 2019-10-18)
PROC: 5A09357 Assistance with Respiratory Ventilation, Less than 24 Consecutive Hours, Continuous Positive Airway Pressure (ICD-10-PCS; 2019-10-19)
PROC: 5A09357 Assistance with Respiratory Ventilation, Less than 24 Consecutive Hours, Continuous Positive Airway Pressure (ICD-10-PCS; 2019-10-20)
PROC: 5A09357 Assistance with Respiratory Ventilation, Less than 24 Consecutive Hours, Continuous Positive Airway Pressure (ICD-10-PCS; 2019-10-21)
DX: J96.21 Acute and chronic respiratory failure with hypoxia (principal); I21.A1 Myocardial infarction type 2; I50.43 Acute on chronic combined systolic (congestive) and diastolic (congestive) heart failure; N39.0 Urinary tract infection, site not specified; J44.1 Chronic obstructive pulmonary disease with (acute) exacerbation; I13.0 Hypertensive heart and chronic kidney disease with heart failure and stage 1 through stage 4 chronic kidney disease, or unspecified chronic kidney disease; I48.19 Other persistent atrial fibrillation; N18.2 Chronic kidney disease, stage 2 (mild); M10.9 Gout, unspecified; G47.33 Obstructive sleep apnea (adult) (pediatric); I25.5 Ischemic cardiomyopathy; E11.22 Type 2 diabetes mellitus with diabetic chronic kidney disease; D64.9 Anemia, unspecified; Z88.1 Allergy status to other antibiotic agents; Z79.899 Other long term (current) drug therapy; Z83.3 Family history of diabetes mellitus; Z82.49 Family history of ischemic heart disease and other diseases of the circulatory system; Z88.5 Allergy status to narcotic agent; Z88.2 Allergy status to sulfonamides; Z79.01 Long term (current) use of anticoagulants
CPT/HCPCS: 36415; 71045; 80048; 80053; 80061; 81001; 82140; 82728; 82962; 83615; 83735; 83880; 84145; 84484; 85025; 85379; 85610; 85730; 86140; 87040; 87086; 87116; 93005; 93010; 93306; 94640; 94644; 94760; G0378; A9270-GY; J1650; J1815; J1940; J1953; J1956; J2920

== ENCOUNTER 2019-12-23 12:42 | Emergency (ER) | payer MEDICARE ==
[2019-12-23] MEDS ORDERED: SODIUM CHLORIDE 0.9% 1000 ML 1,000 ML IV ONE (13:00)
--- NOTE | 2019-12-23 13:02 | Emergency Department Report ---
ED General Adult HPI - General Stated complaint: AMS Time Seen by Provider: 12/23/19 12:58 - History of Present Illness Initial comments: This is a 79-year-old female with a history of COPD on home O2 and diabetes. The daughter reports she was found unresponsive this morning. Her glucose was low. Medics responded and "gave her a bag of D10". Her subsequent glucose was 300 per medic. Despite this she arrives at this facility with somewhat agonal respirations. Family confirms her DNR status to me. She has prior completed DNR paperwork. The daughter states that she has been hypoglycemic a few days ago but seemed to respond. Otherwise, she states that the patient has been feeding well yesterday. She denies any recent fever or chills. She did not observe any change from the patient's baseline status. Apparently she does have end-stage COPD, cardiomyopathy, atrial fib and poor prognosis as per the 11/06 discharge summary to follow. October Discharge Summary: (1) Acute respiratory failure Current Visit: Yes Status: Acute Qualifiers: Respiratory failure complication: hypoxia Qualified Code(s): J96.01 - Acute respiratory failure with hypoxia Plan to address problem: Improved Needs oxygen and hospice at 2 L (2) CHF (congestive heart failure) exacerbation Home hospice Oral Lasix (3) COPD with exacerbation Current Visit: Yes Status: Acute Plan to address problem: Nebulizer treatments and supplemental oxygen 4)A. fib with RVR Metoprolol initiated (5) Urinary tract infection Current Visit: Yes Status: Acute Qualifiers: Encounter type: initial encounter Plan to address problem: CBC, BMP, urinalysis, IV antibiotic therapy, Finished a course of antibiotics No need for further antibiotics (6) DVT prophylaxis Current Visit: Yes Status: Acute Plan to address problem: SCD to bilateral lower extremities while in bed, patient is ambulatory. (7) Advance care planning Current Visit: Yes Status: Acute Plan to address problem: Patient is Hospice Poor prognosis Medications reconciled - Related Data Home Medications Medication Instructions Recorded Confirmed Last Taken Albuterol Sulfate [Proair 90 mcg IH Q4HR PRN 10/18/19 10/18/19 10/17/19 08:00 Digihaler] Azithromycin [Zithromax Z-ANU] 250 mg PO Q4HR PRN 10/18/19 10/18/19 10/10/19 08:00 Fluticasone/Vilanterol [Breo 1 each IH ONCE 10/18/19 10/18/19 10/17/19 08:00 Ellipta 100-25 Mcg INH] Polyethylene Glycol 3350 17 gm PO DAILY 10/18/19 10/18/19 10/17/19 08:00 [Powderlax] Previous Rx's Medication Instructions Recorded Last Taken Type ALBUTEROL NEB's [Proventil 0.083% 2.5 mg IH Q4HRT PRN nebu 10/23/19 Unknown Rx NEBS] Aspirin EC [Halfprin EC] 81 mg PO QDAY tablet 10/23/19 Unknown Rx Ferrous Sulfate [Iron 325 MG] 325 mg PO BID #30 10/23/19 Unknown Rx Furosemide [Lasix TAB] 40 mg PO BID #60 tablet 10/23/19 Unknown Rx Insulin NPH/Regular [Novolin /30] 8 unit SUB-Q BID #1 vial 10/23/19 Unknown Rx Ipratropium/Albuterol Sulfate 1 ampul IH Q4HR #100 ampul.neb 10/23/19 Unknown Rx [DUONEB *Not for PRN Use*] Metoprolol Xl [Metoprolol 50 mg PO Q12HR tablet 10/23/19 Unknown Rx SUCCINATE ER TAB] Pantoprazole [Protonix TAB] 40 mg PO QDAY tablet 10/23/19 Unknown Rx Potassium Chloride [K-Dur] 20 meq PO BID #60 tab 10/23/19 Unknown Rx dilTIAZem CD [Cardizem CD] 240 mg PO QDAY #30 cap 10/23/19 Unknown Rx prednisoLONE [Prednisolone] 15 mg PO QDAY #10 solution 10/23/19 Unknown Rx Allergies Allergy/AdvReac Type Severity Reaction Status Date / Time cefuroxime Allergy Unknown Verified 09/27/19 06:45 codeine Allergy Unknown Verified 09/27/19 06:45 Sulfa (Sulfonamide Allergy Unknown Verified 09/27/19 06:45 Antibiotics) ED Review of Systems ROS: Stated complaint: AMS Other details as noted in HPI Comment: Unobtainable due to pts medical conditions ED Past Medical Hx - Past Medical History Hx Hypertension: Yes Hx Congestive Heart Failure: Yes Hx Diabetes: Yes Hx Renal Disease: Yes (stage 2) Hx Arthritis: Yes Hx COPD: Yes Additional medical history: neuropathy. afib. Cataract. Pnuemonia aug 2019. high cholesterol. anemia. left kidney mass. STACEY - Social History Smoking Status: Former Smoker - Medications Home Medications: Home Medications Medication Instructions Recorded Confirmed Last Taken Type Albuterol Sulfate [Proair 90 mcg IH Q4HR PRN 10/18/19 10/18/19 10/17/19 08:00 History Digihaler] Azithromycin [Zithromax Z-ANU] 250 mg PO Q4HR PRN 10/18/19 10/18/19 10/10/19 08:00 History Fluticasone/Vilanterol [Breo 1 each IH ONCE 10/18/19 10/18/19 10/17/19 08:00 History Ellipta 100-25 Mcg INH] Polyethylene Glycol 3350 17 gm PO DAILY 10/18/19 10/18/19 10/17/19 08:00 History [Powderlax] ALBUTEROL NEB's [Proventil 0.083% 2.5 mg IH Q4HRT PRN nebu 10/23/19 Unknown Rx NEBS] Aspirin EC [Halfprin EC] 81 mg PO QDAY tablet 10/23/19 Unknown Rx Ferrous Sulfate [Iron 325 MG] 325 mg PO BID #30 10/23/19 Unknown Rx Furosemide [Lasix TAB] 40 mg PO BID #60 tablet 10/23/19 Unknown Rx Insulin NPH/Regular [Novolin 70/30] 8 unit SUB-Q BID #1 vial 10/23/19 Unknown Rx Ipratropium/Albuterol Sulfate 1 ampul IH Q4HR #100 ampul.neb 10/23/19 Unknown Rx [DUONEB *Not for PRN Use*] Metoprolol Xl [Metoprolol 50 mg PO Q12HR tablet 10/23/19 Unknown Rx SUCCINATE ER TAB] Pantoprazole [Protonix TAB] 40 mg PO QDAY tablet 10/23/19 Unknown Rx Potassium Chloride [K-Dur] 20 meq PO BID #60 tab 10/23/19 Unknown Rx dilTIAZem CD [Cardizem CD] 240 mg PO QDAY #30 cap 10/23/19 Unknown Rx prednisoLONE [Prednisolone] 15 mg PO QDAY #10 solution 10/23/19 Unknown Rx ED Physical Exam - General Limitations: Other (Agonal respirations) General appearance: obtunded - Head Head exam: Present: atraumatic, normocephalic - Eye Eye exam: Present: other (Roving pupils) - ENT ENT exam: Present: mucous membranes dry - Neck Neck exam: Absent: tenderness, meningismus - Respiratory Respiratory exam: Present: respiratory distress - Cardiovascular Cardiovascular Exam: Present: regular rate, normal rhythm. Absent: systolic murmur, diastolic murmur, rubs, gallop - GI/Abdominal GI/Abdominal exam: Present: soft. Absent: distended, tenderness, guarding, rebound, rigid - Extremities Exam Extremities exam: Present: normal inspection - Neurological Exam Neurological exam: Present: altered - Skin Skin exam: Present: warm, dry. Absent: normal color (Pale) ED Course Vital Signs 12/23/19 12/23/19 12/23/19 12:51 13:15 13:30 Temperature Pulse Rate 98 H 89 95 H Respiratory 23 26 H Rate Blood Pressure 106/65 97/55 O2 Sat by Pulse 98 100 Oximetry 12/23/19 12/23/19 12/23/19 13:31 13:46 14:00 Temperature 98.8 F Pulse Rate 102 H 93 H 89 Respiratory 26 H 27 H 24 Rate Blood Pressure 142/86 122/67 122/62 O2 Sat by Pulse 95 100 100 Oximetry 12/23/19 12/23/19 12/23/19 14:22 14:30 14:45 Temperature Pulse Rate 113 H 118 H 119 H Respiratory 24 30 H Rate Blood Pressure 122/62 126/60 124/67 O2 Sat by Pulse 98 100 Oximetry 12/23/19 12/23/19 12/23/19 15:00 15:16 15:30 Temperature Pulse Rate 77 68 89 Respiratory 27 H 19 11 L Rate Blood Pressure 112/52 160/68 160/68 O2 Sat by Pulse 95 96 95 Oximetry 12/23/19 15:46 Temperature Pulse Rate 111 H Respiratory 9 L Rate Blood Pressure O2 Sat by Pulse Oximetry - Reevaluation(s) Reevaluation #1: Patient was closely monitored. She was agonal on arrival. She was treated empirically for sepsis. Phlebotomy had problems with her blood draw. This was not brought to my attention. She became apneic. This was expected considering her agonal presentation. On arrival her glucose was verified to be 86. She did not respond to glucose prior. Ultimately she was pronounced in EMD at approximately 1515. She was apneic with no signs of life. She was DNR. Family was counseled. Further resuscitative efforts were deemed futile. 12/23/19 16:33 ED Medical Decision Making - Lab Data Result diagrams: 12/23/19 15:02 12/23/19 15:02 Laboratory Results - last 24 hr 12/23/19 12/23/19 12/23/19 13:08 13:15 13:36 WBC RBC Hgb Hct MCV MCH MCHC RDW Plt Count Seg Neutrophils % PT INR APTT Sodium Potassium Chloride Carbon Dioxide Anion Gap BUN Creatinine Estimated GFR BUN/Creatinine Ratio Glucose POC Glucose 86 Lactic Acid Calcium Total Bilirubin Direct Bilirubin Indirect Bilirubin AST ALT Alkaline Phosphatase Ammonia Total Protein Albumin Albumin/Globulin Ratio Urine Color Yellow Urine Turbidity Cloudy Urine pH 7.0 Ur Specific [place] 1.016 Urine Protein <15 mg/dl Urine Glucose (UA) >=500 Urine Ketones Neg Urine Blood Lg Urine Nitrite Neg Urine Bilirubin Neg Urine Urobilinogen < 2.0 Ur Leukocyte Esterase Lg Urine WBC (Auto) > 182.0 H Urine RBC (Auto) > 182.0 U Epithel Cells (Auto) 4.0 Urine WBC Clumps 2+ Urine Yeast (Budding) 2+ Blood Type A POSITIVE Antibody Screen Negative 12/23/19 12/23/19 12/23/19 15:02 15:02 15:02 WBC 11.6 H RBC 3.91 Hgb 9.8 L Hct 32.4 MCV 83 MCH 25 L MCHC 30 RDW 22.8 H Plt Count 336 Seg Neutrophils % [employer] PT 11.7 L INR 0.87 APTT 24.6 Sodium 142 Potassium 4.2 Chloride 97.2 L Carbon Dioxide 34 H Anion Gap 15 BUN 28 H Creatinine 1.0 Estimated GFR > 60 BUN/Creatinine Ratio 28 Glucose 3 L* POC Glucose Lactic Acid Calcium 9.8 Total Bilirubin Direct Bilirubin Indirect Bilirubin AST ALT Alkaline Phosphatase Ammonia Total Protein Albumin Albumin/Globulin Ratio Urine Color Urine Turbidity Urine pH Ur Specific [place] Urine Protein Urine Glucose (UA) Urine Ketones Urine Blood Urine Nitrite Urine Bilirubin Urine Urobilinogen Ur Leukocyte Esterase Urine WBC (Auto) Urine RBC (Auto) U Epithel Cells (Auto) Urine WBC Clumps Urine Yeast (Budding) Blood Type Antibody Screen 12/23/19 12/23/19 12/23/19 15:02 15:02 15:02 WBC RBC Hgb Hct MCV MCH MCHC RDW Plt Count Seg Neutrophils % PT INR APTT Sodium Potassium Chloride Carbon Dioxide Anion Gap BUN Creatinine Estimated GFR BUN/Creatinine Ratio Glucose POC Glucose Lactic Acid 1.40 Calcium Total Bilirubin 0.20 Direct Bilirubin < 0.2 Indirect Bilirubin 0.0 AST 40 ALT 30 Alkaline Phosphatase 59 Ammonia 46.0 Total Protein 6.4 Albumin 3.6 L Albumin/Globulin Ratio 1.3 Urine Color Urine Turbidity Urine pH Ur Specific [place] Urine Protein Urine Glucose (UA) Urine Ketones Urine Blood Urine Nitrite Urine Bilirubin Urine Urobilinogen Ur Leukocyte Esterase Urine WBC (Auto) Urine RBC (Auto) U Epithel Cells (Auto) Urine WBC Clumps Urine Yeast (Budding) Blood Type Antibody Screen - Radiology Data Radiology results: report reviewed (Chest x-ray showed no acute process, chronic interstitial lung disease, CT showed microvascular vasculopathy), image reviewed Critical care attestation.: If time is entered above; I have spent that time in minutes in the direct care of this critically ill patient, excluding procedure time. ED Disposition Clinical Impression: Cardiac arrest Sepsis Qualifiers: Sepsis type: sepsis due to unspecified organism Sepsis acute organ dysfunction status: unspecified Qualified Code(s): A41.9 - Sepsis, unspecified organism Disposition: DC-20 Is pt being admited?: No Does the pt Need Aspirin: No Condition: Stable Time of Disposition: 16:36
[2019-12-23 13:30] LABS: Bilirubin,Urine NEG (Negative); Blood,Urine LG (Negative); Color,Urine Yellow (Yellow); Protein,Urine <15 mg/dL mg/dL (Negative); RBC,Urine > 182.0 /HPF (0.0-6.0); Urobilinogen,Urine < 2.0 mg/dL (<2.0); WBC,Urine > 182.0 /HPF (0.0-6.0)
--- NOTE | 2019-12-23 13:52 | XRay Report ---
CHEST 1 VIEW 1:29 PM INDICATION / CLINICAL INFORMATION: Altered Mental Status. COMPARISON: 10/18/2019. FINDINGS: SUPPORT DEVICES: None. HEART / MEDIASTINUM: The heart size and pulmonary vasculature are normal. LUNGS / PLEURA: Mild diffuse chronic reticular interstitial lung disease is stable. No pneumothorax. ADDITIONAL FINDINGS: No significant additional findings. IMPRESSION: No acute abnormality or significant change. Diffuse chronic interstitial lung disease is stable. Signer Name: Wong Moctezuma MD Signed: 12/23/2019 1:48 PM Workstation Name: [id number]
[2019-12-23] MEDS ORDERED: MEROPENEM/NS 1 GRAM/100 ML 1 GRAM/100 ML BAG IV ONE (14:22)
--- NOTE | 2019-12-23 14:47 | Cat Scan Report ---
CT head/brain wo con INDICATION / CLINICAL INFORMATION: 79 years Female; AMS. TECHNIQUE: Routine CT head without contrast. All CT scans at this location are performed using CT dos e reduction for ALARA by means of automated exposure control. COMPARISON: None. FINDINGS: BRAIN / INTRACRANIAL CONTENTS: There is extensive cerebral white matter disease most consistent with microvascular angiopathy. Findings also appear to involve the posterior, superior left cerebellum. Th ere is mild cerebral atrophy. The ventricular system is correspondingly appropriate in size and confi guration. There are small foci of calcification within the basal ganglia. There is no clear CT eviden ce of acute intracranial hemorrhage or significant mass effect. ORBITS: No significant abnormality of visualized orbits. SINUSES / MASTOIDS: No significant abnormality the visualized paranasal sinuses or mastoid air cells. CRANIOCERVICAL JUNCTION: No significant abnormality. ADDITIONAL FINDINGS: None. IMPRESSION: 1. There is extensive microvascular angiopathy without CT evidence of acute intracranial hemorrhage. Signer Name: Nick Mak MD Signed: 12/23/2019 2:43 PM Workstation Name: [id number]
[2019-12-23] MEDS ORDERED: VANCOMYCIN/NS 1 GM/250 ML 1 GM/250 ML BAG IV ONE (15:32)
[2019-12-23 15:37] LABS: BUN/Creatinine Ratio 28; Blood Urea Nitrogen 28 mg/dL (7-17); Calcium 9.8 mg/dL (8.4-10.2); Hemolysis Index 19
[2019-12-23 15:39] LABS: Alanine Aminotransferase 30 units/L (7-56); Albumin 3.6 g/dL (3.9-5)
[2019-12-23 15:40] LABS: Bilirubin,Direct < 0.2 mg/dL (0-0.2)
[2019-12-23 15:47] LABS: Mean Corpuscular HGB Conc 30 % (30-34); Mean Corpuscular Volume 83 fl (79-97); Platelet Count 336 K/mm3 (140-440); Red Blood Count 3.91 M/mm3 (3.65-5.03)
[2019-12-23 15:49] LABS: Hematocrit 32.4 % (30.3-42.9); Hemoglobin 9.8 gm/dl (10.1-14.3)
[2019-12-23 15:50] LABS: Red Cell Distribution Width 22.8 % (13.2-15.2)
[2019-12-23 15:59] LABS: INR 0.87 (0.87-1.13)
[2019-12-23 16:00] LABS: Partial Thromboplastin Time 24.6 Sec. (24.2-36.6)
[2019-12-23 16:25] VITALS: BP 160/68
[2019-12-23 16:44] LABS: Anisocytosis 1+; Basophils % (Manual) 0 % (0.0-1.8); Eosinophils % (Manual) 0 % (0.0-4.3); Hypochromasia 1+; Total Cells Counted 100
== END 2019-12-23 14:00 ==
LOC: ED 12:42
DX: I46.9 Cardiac arrest, cause unspecified (principal); A41.9 Sepsis, unspecified organism; I11.0 Hypertensive heart disease with heart failure; I50.9 Heart failure, unspecified; E11.649 Type 2 diabetes mellitus with hypoglycemia without coma; M19.91 Primary osteoarthritis, unspecified site; J44.9 Chronic obstructive pulmonary disease, unspecified; Z87.891 Personal history of nicotine dependence; Z79.4 Long term (current) use of insulin; Z79.899 Other long term (current) drug therapy; Z88.2 Allergy status to sulfonamides; Z88.8 Allergy status to other drugs, medicaments and biological substances
CPT/HCPCS: 36415; 70450; 71045; 80048; 80076; 81001; 82140; 82962; 85007; 85025; 85610; 85730; 86850; 86900; 86901; 87040; 87086; 93005; 96361; 96365; 99285; J2185; J3370; J7030